=== PATIENT | female | born 1935 | race African-American/Black ===

== ENCOUNTER 2018-01-10 10:52 | Outpatient (CLI) | payer OTHER ==
--- NOTE | 2018-01-10 13:20 | CT Report ---
CT LUMBAR SPINE WITHOUT CONTRAST: 01/10/2018 CLINICAL INDICATION: Back pain. TECHNIQUE: Axial CT images of the lumbar spine were obtained without intravenous contrast. Sagittal and coronal reconstructions were performed. FINDINGS: The lumbar vertebral bodies demonstrate normal height and alignment. No compression fracture is identified. The T12-L1 disk is unremarkable. At L1-2, there is mild broad-based disk bulge, without significant spinal or foraminal narrowing. At L2-3, there is moderate broad-based disk bulge, producing bilateral foraminal narrowing, but no significant spinal stenosis. At L3-L4, there is moderate broad-based disk bulge, producing bilateral foraminal narrowing, but no significant spinal stenosis. At L4-5, there is a large broad-based disk bulge, producing mild spinal stenosis and bilateral foraminal narrowing. At L5-S1, there is broad-based disk bulge and disk osteophyte, producing bilateral foraminal narrowing and mild spinal stenosis. Limited evaluation of the pelvic organs demonstrates calcification in the right ovary, compatible with an ovarian dermoid. The patient is status post hysterectomy. No free fluid or pelvic adenopathy is identified. The visualized bowel loops are unremarkable. IMPRESSION: DEGENERATIVE DISK DISEASE ABOVE. NO EVIDENCE OF FRACTURE. CT DOSE REDUCTION STATEMENT In accordance with CT protocol optimization, one or more of the following dose reduction techniques were utilized for this exam: automated exposure control, adjustment of mA and/or KV based on patient size, or use of iterative reconstructive technique. TD: 01/10/2018 13:19
== END 2018-01-10 10:53 | disposition home or self-care (01) ==
LOC: DI 10:52
PROVIDERS: ATTEND Internal Medicine
DX: M51.36 Other intervertebral disc degeneration, lumbar region (principal)
CPT/HCPCS: 72131

== ENCOUNTER 2018-01-28 15:53 | Outpatient (CLI) | payer MEDICARE, OTHER ==
--- NOTE | 2018-01-28 17:54 | XRAY Preliminary Report ---
Exam: XR HIPS 3-4V BILAT IMPRESSION: 1. No acute bony abnormality. 2. Progression of marked degenerative changes with impingement, grade 4 Kellgren ruma classificat ion, both hips, remaining greater on the right. [facility] SITE ID: [id number]
--- NOTE | 2018-01-28 19:00 | XRAY Report ---
EXAM: PELVIS AND BILATERAL HIPS RADIOGRAPHY EXAM DATE: 01/28/2018 04:19 PM. CLINICAL HISTORY: Pelvic and perineal pain/pain in right hip. COMPARISON: 08/29/2016. TECHNIQUE: 1 view of the pelvis and 1 view of each hip. FINDINGS: Bones: Normal. No fracture or bone lesion. Joints: Increasing caliber of the exuberant confluent osteophytes encircling both femoral heads off t he acetabulum. Increasing subcortical sclerosis acetabular roofs. Stable moderate to marked right and moderate left hip narrowing. Increasing subcortical sclerosis and cyst formation along the mildly flattened right femoral head. Stable minimal subcortical sclerosis normal configured left femoral head. Progression of marked degenerative disk disease L4-L5 and L5-S1. Soft Tissues: Normal. No soft tissue swelling. IMPRESSION: 1. No acute bony abnormality. 2. Progression of marked degenerative changes with impingement, grade 4 Kellgren-Morris classificat ion, both hips, remaining greater on the right. [facility] Referring Provider Line: [phone] SITE ID: [id number]
== END 2018-01-28 15:54 | disposition home or self-care (01) ==
LOC: DI 15:53
PROVIDERS: ATTEND Internal Medicine
DX: M16.0 Bilateral primary osteoarthritis of hip (principal)
CPT/HCPCS: 73522

== ENCOUNTER 2019-02-06 15:37 | Outpatient (CLI) | payer MEDICARE ==
--- NOTE | 2019-02-07 08:49 | XRAY Report ---
Reason: INFLAMMATION OF JOINT OF BOTH HANDS Procedure Date: 02/06/2019 Accession Number: [id number] / [id number] Procedure: XR - Hand 3 View BILAT CPT Code: FULL RESULT: EXAMS: 1. Right Hand Radiography 2. Left Hand Radiography EXAM DATE: 02/06/2019 04:07 PM. CLINICAL HISTORY: Inflammation of joint of both hands. COMPARISON: None. TECHNIQUE: 3 views each hand. FINDINGS: Right: Bones: Normal bone density. No acute fracture or bone lesion. Joints: Degenerative joint space narrowing and mild osteophyte noted of the DIP joints of the digits first and second MCP joint, base of thumb and STT joint. Soft Tissues: No significant soft tissue swelling appreciated. Left: Bones: Normal bone density. No acute fracture or bone lesion. Joints: Milder joint space narrowing and osteophytosis of the DIP joints. Degenerative osteoarthritis at the base of thumb and also the STT joint. Soft Tissues: No significant soft tissue swelling. IMPRESSION: Symmetric pattern of bilateral osteoarthritis slightly greater on the right than the left. No acute fracture. [facility]
--- NOTE | 2019-02-07 11:01 | XRAY Report ---
Reason: INFLAMMATION OF JOINT OF BOTH HANDS Procedure Date: 02/06/2019 Accession Number: [id number] / [id number] Procedure: XR - Wrist 4 View BILAT CPT Code: FULL RESULT: EXAMS: 1. Right Wrist Radiography 2. Left Wrist Radiography EXAM DATE: 02/06/2019 04:07 PM. CLINICAL HISTORY: Inflammation of joint of both hands. COMPARISON: None. TECHNIQUE: 3 views each wrist. FINDINGS: Right: Bones: Normal bone density. No fractures or bone lesions. Joints: Degenerative joint space narrowing and subchondral sclerosis at the base of thumb as well as the second carpometacarpal joint. Mild degenerative arthrosis of the STT joint and the distal radioulnar joint. Soft Tissues: Normal. No soft tissue swelling. Left: Bones: Normal bone density. No fractures or bone lesions. Joints: Milder degenerative changes at the base of thumb and second carpometacarpal joint. Milder joint space narrowing of the STT joint. Soft Tissues: Normal. No soft tissue swelling. IMPRESSION: Symmetric pattern of osteoarthritis as described, right greater than left. [facility]
== END 2019-02-06 15:38 | disposition home or self-care (01) ==
LOC: DI 15:37
PROVIDERS: ATTEND Internal Medicine
DX: M19.042 Primary osteoarthritis, left hand (principal); M19.041 Primary osteoarthritis, right hand; M19.031 Primary osteoarthritis, right wrist

== ENCOUNTER 2019-02-23 07:07 | Day surgery (SDC) | payer MEDICARE ==
[~2019-02-23 07:07] MED LIST: CYCLOPENTOLATE 1% OPHTH DROPS 2 ML ONE; KETOROLAC 0.45% OPHTH DROPS ONE; PHENYLEPHRINE 2.5% OPHTH 2 ML DROPS ONE; PROPARACAINE 0.5% OPHTH DROPS 15 ML ONE
[2019-02-23] MEDS ORDERED: BRIMONIDINE 0.2% OPHTH DROPS 5 ML ONE (07:15)
[2019-02-23] MEDS ORDERED: VANCOMYCIN OPHTHALMI 8MG/0.8ML 8 MG/0.8 ML SYRINGE IO ONE ×3 (07:15→09:29)
[2019-02-23] MEDS ORDERED: TRIAMCIN/MOXIFLOX OPHTHALMIC 0.6 ML VIAL IO ONE ×3 (07:15→09:29)
[2019-02-23] MEDS ORDERED: BSS/LIDOCAINE/EPINEPHRINE 1 ML SYRINGE ONE (07:15)
[2019-02-23] MEDS ORDERED: TIMOLOL 0.5% OPHTH DROPS ONE (07:15)
[2019-02-23] MEDS ORDERED: PROPARACAINE 0.5% OPHTH DROPS 15 ML LEFTEYE ONE ×3 (07:45→09:29)
[2019-02-23] MEDS ORDERED: KETOROLAC 0.45% OPHTH DROPS LEFTEYE ONE (07:45)
[2019-02-23] MEDS ORDERED: PHENYLEPHRINE 2.5% OPHTH 2 ML DROPS LEFTEYE ONE (07:45)
[2019-02-23] MEDS ORDERED: CYCLOPENTOLATE 1% OPHTH DROPS 2 ML LEFTEYE ONE (07:45)
[2019-02-23] MEDS ORDERED: LACTATED RINGERS 500 ML IV ONE (07:59)
--- NOTE | 2019-02-23 08:10 | ANESTHESIA ---
Pre-Anesthesia VS, & Labs - Diagnosis left eye nuclear sclerotic cataract - Procedure left eye cataract extraction with IOL implant Vital Signs: Temp Pulse Resp BP Pulse Ox 37.1 C 75 18 95 02/23/19 07:36 02/23/19 07:36 02/23/19 07:36 02/23/19 07:36 Height 5 ft 8 in Weight (kg) 67 kg - NPO >8 hours - Is Patient ?: No Home Medications and Allergies Home Medications: Ambulatory Orders Aspirin EC [Ecotrin] 325 mg PO DAILY 02/22/19 Metoprolol Succinate [Toprol Xl] 25 mg PO DAILY 02/22/19 Aspirin EC [Ecotrin] 325 mg PO DAILY 02/22/19 Metoprolol Succinate [Toprol Xl] 25 mg PO DAILY 02/22/19 Allergies/Adverse Reactions: Allergies Allergy/AdvReac Type Severity Reaction Status Date / Time No Known Drug Allergies Allergy Verified 02/22/19 14:53 Anes History & Medical History - Anesthetic History Anesthesia Complications: reports: No previous complications - Medical History Cardiovascular: reports: Hypertension Pulmonary: reports: None Gastrointestinal: reports: None Urinary: reports: None Neuro: reports: None Musculoskeletal: reports: Osteoarthritis Endocrine/Autoimmune: reports: None Blood Disorders: reports: None Skin: reports: None Smoking Status: Former smoker (quit 8 years ago) Psychosocial: reports: No issues indicated - Surgical History Gynecologic: Dilation and currettage, Hysterectomy Exam General: Alert, Oriented x3, Cooperative, No acute distress Dental: WNL Mouth Openin Fingerbreadth Neck Mobility: Normal Mallampati classification: II Thyromental Distance: less than 4 cm (2 FB) Respiratory: Lungs clear, Normal breath sounds, No respiratory distress, No accessory muscle use Cardiovascular: Regular rate, Normal S1, Normal S2, No murmurs Mental/Cognitive Status: Alert/Oriented X3, Normal for patient Plan Anesthesia Type: MAC Consent for Procedure(s) Verified and Reviewed: Yes Code Status: Attempt Resuscitation ASA classification: 2-Mild systemic disease Is this case an emergency?: No
[2019-02-23] MEDS ORDERED: BRIMONIDINE 0.2% OPHTH DROPS 5 ML OPTH ONE ×2 (08:53→09:29)
[2019-02-23] MEDS ORDERED: EPINEPHrine 1 MG/ML AMP IVP ONE ×2 (08:53→09:28)
[2019-02-23] MEDS ORDERED: CHONDR SULF/HYALURONATE SYRINGE IO ONE ×2 (08:54→09:28)
[2019-02-23] MEDS ORDERED: BSS/LIDOCAINE/EPINEPHRINE 1 ML SYRINGE IO ONE ×2 (08:54→09:29)
[2019-02-23] MEDS ORDERED: MIDAZOLAM 2 MG/2 ML VIAL IVP ONE (09:11)
[2019-02-23] MEDS ORDERED: TIMOLOL 0.5% OPHTH DROPS OPTH ONE (09:28)
[2019-02-23 09:48] VITALS: BP 169/77
--- NOTE | 2019-02-23 10:07 | OPERATIVE REPORT ---
DATE OF SERVICE: 02/23/2019 Physician: Tavares Morel MD PREOPERATIVE DIAGNOSIS: Visually significant cataract, left eye. This was her first cataract surger y. POSTOPERATIVE DIAGNOSIS: Visually significant cataract, left eye. This was her first cataract surge ry. NAME OF PROCEDURE: Phacoemulsification with posterior chamber intraocular lens implant, left eye. SURGEON: Tavares Morel MD ANESTHESIA: Monitored anesthesia care. COMPLICATIONS: None. OPERATIVE INDICATIONS: This is an 83-year-old woman with progressive vision loss in the left eye due to 4+ nuclear sclerotic cataract. Best corrected visual acuity was 20/50 with glare to 20/125 in th e left eye. Indications for surgery were overall decrease in vision, difficulty seeing words, closed captions, game scores on TV, difficulty seeing street signs, difficulty driving in low light or at n ight, difficulty driving at night because of headlights from other vehicles, and difficulty with glar e or bright lights in any situation. She was consented at length concerning risks and benefits of ca taract surgery, after which she expressed a desire to proceed with surgery. OPERATIVE PROCEDURE: The patient was taken to OR #3 and placed under monitored anesthesia care. Checo gical timeout was conducted confirming correct patient, correct procedure, and correct surgical site. She was given topical anesthesia, and then prepped and draped in the usual sterile fashion. The ey e was entered at the 6 and 3 o'clock positions. Intracameral Shugarcaine was injected into the anter ior chamber, followed by Viscoat. A continuous-tear curvilinear capsulorrhexis was performed. Nucle us was hydrodissected and phacoemulsified. The cortex was evacuated using automated infusion and asp iration. Provisc was injected in the capsular bag, and a 22.5 diopter intraocular lens inserted in t he bag. Approximately 0.8 mL of a mixture of triamcinolone, moxifloxacin and vancomycin was injected subconjunctivally in the superior quadrant for infection and inflammation prophylaxis. I and A, was used to evacuate the viscoelastic materials. The eye was inflated to physiologic pressure using bal anced salt solution and found to be watertight. The patient was taken from the operating room in goo d condition and given postop instructions. TD: 02/23/2019 09:50
== END 2019-02-23 07:08 | disposition home or self-care (01) ==
LOC: SDS 07:07
PROVIDERS: ATTEND Ophthalmology
PROC: 08RK3JZ Replacement of Left Lens with Synthetic Substitute, Percutaneous Approach (ICD-10-PCS; principal; 2019-02-23 09:00)
DX: H25.12 Age-related nuclear cataract, left eye (principal); I10 Essential (primary) hypertension; G58.9 Mononeuropathy, unspecified; Z87.891 Personal history of nicotine dependence; Z79.82 Long term (current) use of aspirin
CPT/HCPCS: 66984; A9270; J3490; V2632

== ENCOUNTER 2019-05-04 07:56 | Day surgery (SDC) | payer MEDICARE ==
[2019-05-04] MEDS ORDERED: LACTATED RINGERS 500 ML IV ONE (08:48)
[2019-05-04] MEDS ORDERED: CYCLOPENTOLATE 1% OPHTH DROPS 2 ML RIGHTEYE ONE (08:49)
[2019-05-04] MEDS ORDERED: PHENYLEPHRINE 2.5% OPHTH 2 ML DROPS RIGHTEYE ONE (08:49)
[2019-05-04] MEDS ORDERED: PROPARACAINE 0.5% OPHTH DROPS 15 ML RIGHTEYE ONE ×2 (08:49→09:54)
[2019-05-04] MEDS ORDERED: KETOROLAC 0.45% OPHTH DROPS RIGHTEYE ONE (08:49)
--- NOTE | 2019-05-04 09:03 | ANESTHESIA ---
Pre-Anesthesia VS, & Labs - Diagnosis R nuclear sclerotic cataract - Procedure R extraction cataract w/IOL Vital Signs: Temp Pulse Resp BP Pulse Ox 36.4 C L 74 16 182/66 H 96 05/04/19 08:52 05/04/19 08:52 05/04/19 08:52 05/04/19 08:52 05/04/19 08:52 Height 5 ft 9 in Weight (kg) 69.2 kg - NPO >8 hours - Is Patient ?: No Home Medications and Allergies Aspirin EC [Ecotrin] 325 mg PO DAILY 02/22/19 Metoprolol Succinate [Toprol Xl] 25 mg PO DAILY 02/22/19 Allergies/Adverse Reactions: Allergies Allergy/AdvReac Type Severity Reaction Status Date / Time No Known Drug Allergies Allergy Verified 02/22/19 14:53 Anes History & Medical History - Anesthetic History Anesthesia Complications: reports: No previous complications Family history of Anesthesia Complications: Denies Family history of Malignant Hyperthermia: Denies - Medical History Cardiovascular: reports: Hypertension Pulmonary: reports: None Gastrointestinal: reports: None Urinary: reports: None Neuro: reports: None Musculoskeletal: reports: Osteoarthritis Endocrine/Autoimmune: reports: None Blood Disorders: reports: None Skin: reports: None Smoking Status: Former smoker (quit 8 years ago) - Surgical History Gynecologic: Hysterectomy Exam General: Alert, Oriented x3, Cooperative Dental: WNL Mouth Openin Fingerbreadth Neck Mobility: Normal Mallampati classification: II Thyromental Distance: 4-6 cm Respiratory: Lungs clear Cardiovascular: Regular rate Neurological: Normal speech Mental/Cognitive Status: Alert/Oriented X3, Normal for patient Cognitive Status: Within normal limits Plan Anesthesia Type: MAC Consent for Procedure(s) Verified and Reviewed: Yes Code Status: Attempt Resuscitation ASA classification: 2-Mild systemic disease Is this case an emergency?: No
[2019-05-04] MEDS ORDERED: BRIMONIDINE 0.2% OPHTH DROPS 5 ML OPTH ONE (09:52)
[2019-05-04] MEDS ORDERED: EPINEPHrine 1 MG/ML AMP IVP ONE (09:53)
[2019-05-04] MEDS ORDERED: TIMOLOL 0.5% OPHTH DROPS OPTH ONE (09:53)
[2019-05-04] MEDS ORDERED: BSS/LIDOCAINE/EPINEPHRINE 1 ML SYRINGE IO ONE (09:53)
[2019-05-04] MEDS ORDERED: CHONDR SULF/HYALURONATE SYRINGE IO ONE (09:53)
[2019-05-04] MEDS ORDERED: TRIAMCIN/MOXIFLOX OPHTHALMIC 0.6 ML VIAL IO ONE ×2 (09:54→10:57)
[2019-05-04] MEDS ORDERED: VANCOMYCIN OPHTHALMI 8MG/0.8ML 8 MG/0.8 ML SYRINGE IO ONE ×2 (09:54→10:59)
[2019-05-04] MEDS ORDERED: MIDAZOLAM 2 MG/2 ML VIAL IVP ONE (10:07)
[2019-05-04] MEDS ORDERED: BRIMONIDINE 0.2% OPHTH DROPS 5 ML ONE (10:58)
[2019-05-04] MEDS ORDERED: EPINEPHrine 1 MG/ML AMP ONE (10:58)
[2019-05-04] MEDS ORDERED: BSS/LIDOCAINE/EPINEPHRINE 1 ML SYRINGE ONE (10:59)
[2019-05-04] MEDS ORDERED: TIMOLOL 0.5% OPHTH DROPS ONE (10:59)
[2019-05-04 11:01] VITALS: BP 166/79
--- NOTE | 2019-05-04 11:03 | OPERATIVE REPORT ---
DATE OF SERVICE: 05/04/2019 Physician: Tavares Morel MD PREOPERATIVE DIAGNOSIS: Visually significant cataract, right eye. Cataract surgery was performed on the left eye on 02/23/2019. POSTOPERATIVE DIAGNOSIS: Visually significant cataract, right eye. Cataract surgery was performed o n the left eye on 02/23/2019. PROCEDURE: Phacoemulsification with posterior chamber intraocular lens implant, right eye. SURGEON: Tavares Morel MD ANESTHESIA: Monitored anesthesia care. COMPLICATIONS: None. OPERATIVE INDICATIONS: This is an 83-year-old woman with progressive vision loss in the right eye du e to 4+ nuclear sclerotic cataract. Best corrected visual acuity was 20/50 with glare to 20/100 in t he right eye. Indications for surgery are overall decrease in vision, difficulty reading, difficulty seeing words, closed caption and game scores on TV, difficulty seeing street signs, difficulty drivi ng in low light or at night and difficulty with glare or bright lights in any situation. She was con sented at length concerning risks and benefits of cataract surgery, after which she expressed a bonita e to proceed with surgery. OPERATIVE PROCEDURE: Patient was taken into OR #3 and placed under monitored anesthesia care. A corine gical timeout was conducted confirming the correct patient, correct procedure, and correct surgical s ite. She was given topical anesthesia, and prepped and draped in the usual sterile fashion. The eye was entered at the 12 and 9 o'clock positions. Intracameral Shugarcaine was injected into the anter ior chamber, followed by Viscoat. A continuous-tear curvilinear capsulorrhexis was performed. The n ucleus was hydrodissected and phacoemulsified. The cortex was evacuated using automated infusion and aspiration. Provisc was injected into the capsular bag, and a 22.5 diopter intraocular lens inserte d into the bag. Approximately 0.8 mL of a mixture of triamcinolone, moxifloxacin and vancomycin was injected subconjunctivally in the superior quadrant for infection and inflammation prophylaxis. I an d A was used to evacuate the viscoelastic materials. The eye was inflated to physiologic pressure us ing balanced salt solution and found to be watertight. The patient was taken from the operating room in good condition and given postoperative instructions. TD: 05/04/2019 10:17
== END 2019-05-04 07:57 | disposition home or self-care (01) ==
LOC: SDS 07:56
PROVIDERS: ATTEND Ophthalmology
PROC: 08RJ3JZ Replacement of Right Lens with Synthetic Substitute, Percutaneous Approach (ICD-10-PCS; principal; 2019-05-04 10:00)
DX: H25.11 Age-related nuclear cataract, right eye (principal); I10 Essential (primary) hypertension; Z87.891 Personal history of nicotine dependence; Z79.82 Long term (current) use of aspirin; Z79.899 Other long term (current) drug therapy; Z98.42 Cataract extraction status, left eye
CPT/HCPCS: 66984; A9270; J3490; V2632

== ENCOUNTER 2021-07-15 18:01 | Observation (INO) | payer MEDICARE, MEDICAID ==
[2021-07-15 18:36] LABS: BASOPHILS % (AUTO) 0.3 %; EOSINOPHILS % (AUTO) 0.3 %; HCT - HEMATOCRIT 30.3 % (37.0-47.0); HGB - HEMOGLOBIN 9.5 g/dL (12.0-16.0); LYMPHOCYTES # (AUTO) 2.8 10^3/uL (1.5-3.5); LYMPHOCYTES % (AUTO) 24.5 %; MEAN CORPUSCULAR HEMOGLOBIN 28.6 pg (27.0-31.0); MEAN CORPUSCULAR HGB CONC 31.4 g/dL (32.0-36.0); MEAN CORPUSCULAR VOLUME 91.3 fL (81.0-99.0); MEAN PLATELET VOLUME 10.6 fL (7.9-10.8); MONOCYTES # (AUTO) 0.9 10^3/uL (0.0-1.0); MONOCYTES % (AUTO) 7.7 %; NEUTROPHILS # (AUTO) 7.7 10^3/uL (1.5-6.6); NEUTROPHILS % (AUTO) 66.9 %; PLT - PLATELET COUNT 232 10^3/uL (130-450); RED BLOOD COUNT 3.32 10^6/uL (4.20-5.40); RED CELL DISTRIBUTION WIDTH 14.6 % (12.0-15.0); WHITE BLOOD COUNT 11.5 x10^3/uL (4.8-10.8)
[2021-07-15 18:55] LABS: ALBUMIN 3.8 g/dL (3.2-5.5); ALBUMIN/GLOBULIN RATIO 1.3 (1.0-2.2); CALCIUM 9.2 mg/dL (8.5-10.3); POTASSIUM 4.4 mmol/L (3.5-5.0); TOTAL PROTEIN 6.8 g/dL (6.7-8.2)
--- NOTE | 2021-07-15 19:04 | ED Physician Documentation ---
PD HPI CHEST PAIN - Stated complaint Stated Complaint: SOA,CHEST PX - Chief complaint Chief Complaint: Cardiac - History obtained from History obtained from: Patient - History of Present Illness Timing - onset: How many days ago (2) Timing - onset during: Light activity Timing - duration: Days (2The patient has noticed a couple of days of dyspnea on exertion and general fatigue along with an epigastric to substernal pain. She states it feels burning. She tried some MOM yesterday without improvement. Noted dark stool today.) Timing - details: Gradual onset, Still present Quality: Aching Location: Substernal, Epigastric Radiation: No: Neck, Back Improved by: Rest Worsened by: Exertion, Eating. No: Palpation Associated symptoms: Nausea, Feeling faint / dizzy (today), General Weakness. No: Shortness of air, Vomiting Similar symptoms before: Has not had sx before Recently seen: Clinic (chemo at [facility] 2 weeks ago. Seen in clinic last week [facility]. Had labs done yesterday and CT chest/abd this morning in [facility]. Had increased abd pain after PO contrast for that.) Review of Systems Constitutional: reports: Fatigue, Weight Loss. denies: Fever, Chills Nose: denies: Rhinorrhea / runny nose, Congestion Throat: denies: Sore throat Cardiac: reports: Chest pain / pressure. denies: Palpitations, Pedal edema Respiratory: reports: Dyspnea. denies: Cough GI: reports: Abdominal Pain (epigastric), Nausea (with decreased oral intake for several days). denies: Vomiting, Diarrhea : denies: Dysuria Skin: denies: Rash Musculoskeletal: denies: Extremity swelling Neurologic: reports: Generalized weakness, Near syncope. denies: Focal weakness, Numbness, Syncope Psychiatric: denies: Depressed Endocrine: reports: Weight loss. denies: Weight gain, Easy bruising / bleeding Immunocompromised: reports: Immunocompromised PD PAST MEDICAL HISTORY - Past Medical History Past Medical History: Yes Cardiovascular: Hypertension Respiratory: None Neuro: None Endocrine/Autoimmune: None GI: None, Other (colon cancer with lung mets, getting chemo currently. ) : None HEENT: Chronic vision loss Psych: None Musculoskeletal: Osteoarthritis Derm: None - Past Surgical History Past Surgical History: Yes /[employer]: Hysterectomy - Present Medications Home Medications: Ambulatory Orders Medication Instructions Recorded Confirmed Aspirin EC [Ecotrin] 325 mg PO DAILY 02/22/19 07/15/21 Metoprolol Succinate [Toprol Xl] 25 mg PO DAILY 02/22/19 07/15/21 Cyanocobalamin (Vitamin B-12) 5,000 mcg PO DAILY 07/15/21 07/15/21 [Vitamin B12] Multivitamin [Theragran] 1 each PO DAILY 07/15/21 07/15/21 - Allergies Allergies/Adverse Reactions: Allergies Allergy/AdvReac Type Severity Reaction Status Date / Time No Known Drug Allergies Allergy Verified 07/15/21 18:04 - Living Situation Living Situation: reports: With family Living Arrangement: reports: At home - Social History Does the pt smoke?: No Smoking Status: Never smoker Does the pt drink ETOH?: No Does the pt have substance abuse?: No - POLST POLST Status: Full Code PD ED PE NORMAL - Vitals Vital signs reviewed: Yes (BP mildly low at 96/52, improved with IV fluids. ) - General General: Alert and oriented X 3, No acute distress, Well developed/nourished - HEENT HEENT: Pharynx benign. No: Moist mucous membranes - Neck Neck: Supple, no meningeal sign, No adenopathy - Cardiac Cardiac: RRR, No murmur - Respiratory Respiratory: Clear bilaterally, Other (port noted left chest wall. ) - Abdomen Abdomen: Normal bowel sounds, Soft, Non distended, No organomegaly, Other (tender epigastric without percussion nor rebound. ) - Rectal Rectal: Other (soft stool in vault, appears dark/melanotic. Sent to lab. ) - Derm Derm: Normal color, Warm and dry - Extremities Extremities: No tenderness to palpate, Normal ROM s pain, No edema, No calf tenderness / cord - Neuro Neuro: Alert and oriented X 3, No motor deficit, Normal speech Eye Opening: Spontaneous Motor: Obeys Commands Verbal: Oriented GCS Score: 15 Results - Vitals Vitals: Vital Signs - 24 hr 07/15/21 07/15/21 07/15/21 18:04 20:11 20:16 Temperature 36.1 C L Heart Rate 88 75 Heart Rate [ 87 Sitting] Heart Rate [ 118 H Standing] Heart Rate [ 85 Supine] Respiratory 18 20 Rate Blood Pressure 96/52 L 150/50 H Blood Pressure 133/105 H [Sitting] Blood Pressure 143/57 H [Standing] Blood Pressure 139/113 H [Supine] O2 Saturation 100 100 Oxygen O2 Source Room air - Labs Labs: Microbiology 07/15/21 20:30 Occult Blood - Final Stool Laboratory Tests 07/15/21 07/15/21 07/15/21 18:32 18:32 18:32 WBC 11.5 H RBC 3.32 L Hgb 9.5 L Hct 30.3 L MCV 91.3 MCH 28.6 MCHC 31.4 L RDW 14.6 Plt Count 232 MPV 10.6 Neut # (Auto) 7.7 H Lymph # (Auto) 2.8 [place] # (Auto) 0.9 Eos # (Auto) 0.0 Baso # (Auto) 0.0 Absolute Nucleated RBC 0.00 Nucleated RBC % 0.0 Sodium 133 L Potassium 4.4 Chloride 98 L Carbon Dioxide 22 Anion Gap 13.0 BUN 35 H Creatinine 1.0 Estimated GFR (MDRD) 64 L Glucose 122 H Calcium 9.2 Total Bilirubin 1.0 AST 19 ALT 13 Alkaline Phosphatase 62 Troponin I High Sens 4.8 Total Protein 6.8 Albumin 3.8 Globulin 3.0 Albumin/Globulin Ratio 1.3 Lipase 28 Nasal Adenovirus (PCR) Nasal B. parapertussis DNA (PCR) Nasal Coronavir 229E PCR Nasal Coronavir HKU1 PCR Nasal Coronavir NL63 PCR Nasal Coronavir OC43 PCR Nasal Enterovir/Rhinovir PCR Nasal Influenza B PCR Nasal Influenza A PCR Nasal Parainfluen 1 PCR Nasal Parainfluen 2 PCR Nasal Parainfluen 3 PCR Nasal Parainfluen 4 PCR Nasal RSV (PCR) Nasal B.pertussis DNA PCR Nasal C.pneumoniae (PCR) Phil Human Metapneumo PCR Nasal M.pneumoniae (PCR) Nasal SARS-CoV-2 (PCR) 07/15/21 21:09 WBC RBC Hgb Hct MCV MCH MCHC RDW Plt Count MPV Neut # (Auto) Lymph # (Auto) [place] # (Auto) Eos # (Auto) Baso # (Auto) Absolute Nucleated RBC Nucleated RBC % Sodium Potassium Chloride Carbon Dioxide Anion Gap BUN Creatinine Estimated GFR (MDRD) Glucose Calcium Total Bilirubin AST ALT Alkaline Phosphatase Troponin I High Sens Total Protein Albumin Globulin Albumin/Globulin Ratio Lipase Nasal Adenovirus (PCR) NOT DETECTED Nasal B. parapertussis DNA (PCR) NOT DETECTED Nasal Coronavir 229E PCR NOT DETECTED Nasal Coronavir HKU1 PCR NOT DETECTED Nasal Coronavir NL63 PCR NOT DETECTED Nasal Coronavir OC43 PCR NOT DETECTED Nasal Enterovir/Rhinovir PCR NOT DETECTED Nasal Influenza B PCR NOT DETECTED Nasal Influenza A PCR NOT DETECTED Nasal Parainfluen 1 PCR NOT DETECTED Nasal Parainfluen 2 PCR NOT DETECTED Nasal Parainfluen 3 PCR NOT DETECTED Nasal Parainfluen 4 PCR NOT DETECTED Nasal RSV (PCR) NOT DETECTED Nasal B.pertussis DNA PCR NOT DETECTED Nasal C.pneumoniae (PCR) NOT DETECTED Phil Human Metapneumo PCR NOT DETECTED Nasal M.pneumoniae (PCR) NOT DETECTED Nasal SARS-CoV-2 (PCR) NOT DETECTED PD MEDICAL DECISION MAKING - ED course Complexity details: reviewed results (We did obtain CT report and blood tests from yesterday and the CT report from this morning. Her hemoglobin did show an interval change from 11.6 down to 9.5.), re-evaluated patient (She is feeling a little bit improved with some IV fluids. However still feels general weakness. Her upper abdominal discomfort is improved with Mylanta.), considered differential (Concern for gastritis versus ulcer with report of some dark stool and appears guaiac negative. Will send it to the lab. Checking blood count and other labs. She had CT abdomen and chest chest this morning so we will obtain those results.), d/w patient Departure - Departure Disposition: ED Place in Observation Clinical Impression: Upper GI bleeding, Generalized weakness, Decreased hemoglobin Colon cancer Qualifiers: Colon location: unspecified part of colon Qualified Code(s): C18.9 - Malignant neoplasm of colon, unspecified Condition: Stable Record reviewed to determine appropriate education?: Yes Discharge Date/Time: 07/15/21 23:26
--- NOTE | 2021-07-15 19:06 | XRAY Report ---
PROCEDURE: Chest 1 View X-Ray INDICATIONS: Chest Pain TECHNIQUE: One view of the chest was acquired. COMPARISON: None. FINDINGS: Surgical changes and devices: Left-sided port with the catheter tip at the lower third of the SVC.. Lungs and pleura: No pleural effusions or pneumothorax. Lungs appear clear. Mediastinum: Mediastinal contours appear normal. Heart size is normal. Bones and chest wall: No suspicious bony lesions. Overlying soft tissues appear unremarkable. IMPRESSION: No acute cardiopulmonary abnormality. Reviewed by: Dangelo Lopez MD on 07/15/2021 7:05 PM PDT Approved by: Dangelo Lopez MD on 07/15/2021 7:05 PM PDT Station ID: [id number]
[2021-07-15] MEDS ORDERED: SODIUM CHLORIDE 0.9% 1,000 ML IV STA (19:34)
[2021-07-15] MEDS ORDERED: MAG HYDROX/AL HYDROX/SIMETH 30 ML UDC PO STA (19:35)
[2021-07-15] MEDS ORDERED: ONDANSETRON 4 MG/2 ML VIAL IVP STA (19:35)
[2021-07-15] MEDS ORDERED: FAMOTIDINE 20 MG/2 ML VIAL IVP STA (19:35)
[2021-07-15] MEDS ORDERED: PANTOPRAZOLE 40 MG VIAL IVP STA (21:04)
[2021-07-15] MEDS ORDERED: SODIUM CHLORIDE FLUSH 0.9% 10 ML SYRINGE IVP PRN (22:00)
[2021-07-15] MEDS ORDERED: ONDANSETRON ODT 4 MG TABLET TL PRN (22:00)
[2021-07-15] MEDS ORDERED: PROCHLORPERAZINE 10 MG/2 ML VIAL IVP PRN (22:00)
[2021-07-15] MEDS ORDERED: ONDANSETRON 4 MG/2 ML VIAL IVP PRN (22:00)
[2021-07-15 22:23] LABS: HCT - HEMATOCRIT 26.4 % (37.0-47.0); MEAN CORPUSCULAR HEMOGLOBIN 28.7 pg (27.0-31.0); MEAN CORPUSCULAR HGB CONC 30.3 g/dL (32.0-36.0); MEAN CORPUSCULAR VOLUME 94.6 fL (81.0-99.0); MEAN PLATELET VOLUME 10.6 fL (7.9-10.8); RED BLOOD COUNT 2.79 10^6/uL (4.20-5.40); RED CELL DISTRIBUTION WIDTH 14.8 % (12.0-15.0); WHITE BLOOD COUNT 9.2 x10^3/uL (4.8-10.8)
[2021-07-15 23:17] LABS: B. PARAPERTUSSIS- RESP PCR PAN NOT DETECTED; B. PERTUSSIS- RESP PCR PANEL NOT DETECTED; C. PNEUMONIAE- RESP PCR PANEL NOT DETECTED; CORONAVIRUS 229E-RESP PCR NOT DETECTED; CORONAVIRUS HKU1-RESP PCR NOT DETECTED; CORONAVIRUS NL63-RESP PCR NOT DETECTED; CORONAVIRUS OC43-RESP PCR NOT DETECTED; HUMAN METAPNEUMOVIRUS NOT DETECTED; INFLUENZA A- RESP PCR PANEL NOT DETECTED; INFLUENZA B - RESP PCR PANEL NOT DETECTED; M. PNEUMONIAE- RESP PCR PANEL NOT DETECTED; PARAINFLUENZA VIRUS 1 NOT DETECTED; PARAINFLUENZA VIRUS 2 NOT DETECTED; PARAINFLUENZA VIRUS 3 NOT DETECTED; PARAINFLUENZA VIRUS 4 NOT DETECTED; RHINOVIRUS/ENTEROVIRUS NOT DETECTED; RSV- RESP PCR PANEL NOT DETECTED; SARS-CoV-2 -RESP PCR PANEL NOT DETECTED
--- NOTE | 2021-07-15 23:38 | HISTORY & PHYSICAL EXAMINATION ---
Chief Complaint - Chief Complaint Chief Complaint: short of breath and epigastric burning History of Present Illness - Admitted From Admitted From:: home via POV - History Obtained From Records Reviewed: [facility] History obtained from: patient and Dr. Luo Exam Limitations: none - History of Present Illness HPI Comment/Other: This is an 85-year-old female who is followed by Rachelle Sandhu at [facility] and was diagnosed with colon cancer in June 2020 but also has a history of nonsmall cell lung cancer. She is undergoing chemotherapy but can't tell me the name nor can she remember her last dosing. Her Oncologist is Gerardo Schilling MD. She has no previous history of ulcer disease, and we do not have records to indicate what her staging is. She is on aspirin daily. She also takes nonsteroidals for arthritis. But she has not had any for the last 3 to 4 days. She presented to the emergency room via private vehicle with chest pain that started last night. Accompanying the chest pain is just dyspnea on exertion. Pain is in the epigastric reason, nonstop, a burning sensation. No radiation. Driving here in the car did not make the pain worse or better. Eating does not make it worse or better. Last bowel movement was today. She does not recall if it was black or brown. She knows that she did not have any blood. She denies any abdominal pain. Diarrhea. She states that in spite of the cancer and chemotherapy she has been doing well. She still has a relatively decent appetite. Has lost weight but still likes food. Denies cough, wheezing. Had no fatigue or dyspnea on exertion until it was sudden onset yesterday. Denies headache, syncope. Temperature is 36.1. Heart rate 88. Blood pressure 96/52. She was on 100% on room air. Dr. Luo verbally reports that her exam was negative to him from a cardiac perspective. She was not a congestive heart failure. Was not tachyp neic or in respiratory distress. He did a rectal exam of black stool and she was heme positive. She had blood work done yesterday as part of her follow-up for chemo and treatment and hemoglobin was 11.4. Today hemoglobin is 9.5. Troponin was 4.8. Sodium 133. BUN [address] of abdomen and pelvis was done today prior to her visit to the emergency room. She has marked diffuse centrilobular emphysema, similar to prior exams. Multiple lung nodules are similar to her previous exam. She has a new nodule within worsening groundglass density of the right upper lobe. No pleural effusion. No bony abnormalities suggestive of metastatic bone disease. Colon was unremarkable. She has slight interval increase in the enhancing nodule in the left lower quadrant of her abdomen when compared to March 10, 2021. And unchanged calcified right adnexal lesion. She is now placed in observation for acute blood loss anemia associated with black heme positive stool. 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 She does not remember if they had any high blood pressure diabetes cancer heart attack. She is 1 of 6 siblings and she says as far she knows everyone is healthy. No one is . Her one son is healthy. Living arrangement: At home Living Situation: With family Social History Notes: Born in [facility] and then her mom took the kids to [place] at a young age for her. She was in [place], and unfortunately her in 2011 of kidney failure. She was living in [place] to be close to her kids. She has 1 son and a ukeqxche-iz-sib and great grandkids. The son decided to move to [facility] and she did not want to be by herself so she sold her condo and moved in with her son and daughte r-in-law [place] She smoked 1 pack/day starting in her 20s and quit in 2009. She has no history of alcohol abuse or recreational substance abuse. 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 - Substance History Use: Uses substance without health or social issues: NONE - POLST Patient has POLST: Yes POLST Status: Full Code Meds/Allgy - Home Medications Home Medications: Ambulatory Orders Medication Instructions Recorded Confirmed Aspirin EC [Ecotrin] 325 mg PO DAILY 02/22/19 07/15/21 Metoprolol Succinate [Toprol Xl] 25 mg PO DAILY 02/22/19 07/15/21 Cyanocobalamin (Vitamin B-12) 5,000 mcg PO DAILY 07/15/21 07/15/21 [Vitamin B12] Multivitamin [Theragran] 1 each PO DAILY 07/15/21 07/15/21 - Allergies Allergies/Adverse Reactions: Allergies Allergy/AdvReac Type Severity Reaction Status Date / Time No Known Drug Allergies Allergy Verified 07/15/21 18:04 Review of Systems - Constitutional Constitutional: reports: Other (Fatigue and malaise was abrupt in onset starting yesterday afternoon.). denies: Fever, Chills, Poor appetite, Diaphoresis, Night sweats - Eyes Eyes: denies: Pain, Irritation, Amaurosis - Ears, Nose & Throat Ears, Nose & Throat: denies: Ear pain, Hearing loss, Hearing aids, Tinnitus, Sore throat, Hoarseness - Cardiovascular Cariovascular: reports: Lightheadedness (Starting yesterday), Exertional dyspnea (Starting yesterday). denies: Irregular heart rate, Palpitations, Chest pain, Edema - Respiratory Respiratory: denies: Cough, Sputum production, Wheezing, Snoring, Orthopnea - Gastrointestinal Gastrointestinal: denies: Abdominal pain, Abdominal distention, Constipation, Diarrhea, Black stools, Bloody stools, Nausea, Vomiting - Genitourinary Genitourinary: denies: Dysuria, Frequency, Urgency - Musculoskeletal Musculoskeletal: denies: Muscle pain, Back pain, Muscle aches - Integumentary Integumentary: denies: Rash, Pruritis, Lesions, Dryness - Neurological Neurological: reports: General weakness, Dizziness. denies: Focal weakness, Headache - Psychiatric Psychiatric: denies: Depression, Anxiety, Suicidal - Endocrine Endocrine: denies: Polyuria, Polydypsia, Polyphagia - Hematologic/Lymphatic Hematologic/Lymphatic: denies: Anemia, Bruising, Petechiae Prior Level of Functionality: She states that she is still cooking for her family. Dresses himself, feeds her self. Her son and [id number] take her to her doctor visits. She lives with them. Does not use any durable medical equipment. Exam - Vital Signs Reviewed Vital Signs: Yes Vital Signs: Vital Signs x48h Temp Pulse Pulse Pulse Pulse Resp BP 07/15/21 23:00 36.5 C 85 15 123/65 07/15/21 22:21 85 20 07/15/21 20:16 87 118 H 85 07/15/21 20:11 75 20 150/50 H 07/15/21 18:04 36.1 C L 88 18 96/52 L BP BP BP Pulse Ox 07/15/21 23:00 100 07/15/21 22:21 100 07/15/21 20:16 133/105 H 143/57 H 139/113 H 07/15/21 20:11 100 07/15/21 18:04 100 - Physical Exam General Appearance: positive: No acute distress, Alert, Other (Absolutely delightful elderly black female) Eyes Bilateral: positive: PERRL, EOMI ENT: positive: Pharynx nml Neck: positive: No JVD. negative: Stiff neck Respiratory: positive: No respiratory distress. negative: Wheezes, Rales, Rhonchi Cardiovascular: positive: Regular rate & rhythm, Systolic murmur. negative: Gallop/S4, Friction rub Peripheral Pulses: positive: 1+ Abdomen: positive: No organomegaly, Nml bowel sounds, No distention, Tenderness (Very mild in mid epigastric region.) Rectal: positive: Stool - heme POS (Per ER provider, that was black stool), Black stool Skin: positive: Warm, Dry Extremities: positive: Full ROM, No pedal edema Neurologic/Psychiatric: positive: Oriented x3, CN's nml (2-12), Motor nml Conclusion/Plan - Problem List (1) Epigastric abdominal pain Conclusion/Plan: In an elderly patient who takes daily aspirin therapy, no history of smoking, my suspicion is that of gastritis or ulcer. Accompanying this is the next 2 problems. I suspect low-grade upper GI bleed. Plan: Observation status Serial hemograms to make sure she does not need a transfusion Proton pump inhibitor General surgery consult has been discussed with Dr. Smith for EGD tomorrow (2) Black stool Conclusion/Plan: Hematochezia due to upper GI bleed. Plan is as above with epigastric pain (3) Acute anemia Conclusion/Plan: Due to upper GI bleed. (4) Colon cancer Conclusion/Plan: Unknown pathology, unknown staging. Same for the non-small cell lung cancer. Plan:Call her oncologist office to see if we can get some infomation Qualifiers: Colon location: unspecified part of colon Qualified Code(s): C18.9 - Malignant neoplasm of colon, unspecified - Lab Results Lab results reviewed: Yes Chuckie Bones: 07/15/21 22:21 07/15/21 18:32 - Diagnostic Imaging Results Diagnostic Imaging Results: positive: Final report reviewed Core Measures - Anticipated LOS I expect patient to be DC'd or transferred within 96 hours.: Yes - DVT/VTE - Prophylaxis VTE/DVT Device ordered at admit?: Yes
[2021-07-15] MEDS: SODIUM CHLORIDE 0.9% 1,000 ML IV SCH (23:42)
[2021-07-15] MEDS: SODIUM CHLORIDE FLUSH 0.9% 10 ML SYRINGE IVP SCH (23:42)
[2021-07-16] MEDS ORDERED: PANTOPRAZOLE 40 MG VIAL IVP SCH (07:00)
[2021-07-16 07:10] LABS: HCT - HEMATOCRIT 25.2 % (37.0-47.0); HGB - HEMOGLOBIN 7.9 g/dL (12.0-16.0); MEAN CORPUSCULAR HEMOGLOBIN 28.7 pg (27.0-31.0); MEAN CORPUSCULAR HGB CONC 31.3 g/dL (32.0-36.0); MEAN CORPUSCULAR VOLUME 91.6 fL (81.0-99.0); MEAN PLATELET VOLUME 10.7 fL (7.9-10.8); RED BLOOD COUNT 2.75 10^6/uL (4.20-5.40); WHITE BLOOD COUNT 7.8 x10^3/uL (4.8-10.8)
--- NOTE | 2021-07-16 08:27 | CONSULTATION NOTE ---
Referring Provider Name of Referring Provider:: Ben Consult Date: 07/16/21 Chief Complaint - Chief Complaint Chief Complaint: chest pain, gagging on food x 24 hours History of Present Illness - Admitted From Admitted From:: ED - History Obtained From Records Reviewed: [facility] from [facility] History obtained from: Patient - History of Present Illness HPI Comment/Other: This 85 yo female has been receiving chemotherapy at [facility] in [place] and had a follow uo Chest/abd/pelvis CT yesterday. Last chemo 2 weeks ago at [facility]. Hemoglobin noticed to drop from 11.4 to 8 and stool is Heme positive. She also has lung Cancer, no other details available. Chemo has been for colon cancer. CT chest/abd/pelvis yesterday at [facility] showed normal esophagus and mediastinum, normal liver and GB, enlarged nodule in left pelvis mesentery, multiple bilateral lung nodules. History - Past Medical History Cardiovascular: reports: Hypertension Respiratory: reports: None Neuro: reports: None Endocrine/Autoimmune: reports: None GI: reports: None, Other (colon cancer with lung mets, getting chemo currently. 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 She does not remember if they had any high blood pressure diabetes cancer heart attack. She is 1 of 6 siblings and she says as far she knows everyone is healthy. No one is . Her one son is healthy. Living arrangement: At home Living Situation: With family Social History Notes: Born in [facility] and then her mom took the kids to [place] at a young age for her. She was in [place], and unfortunately her in 2011 of kidney failure. She was living in [place] to be close to her kids. She has 1 son and a mcceutgj-ln-zoa and great grandkids. The son decided to move to [facility] and she did not want to be by herself so she sold her condo and [place] in [id number]. She smoked 1 pack/day starting in her 20s and quit in 2009. She has no history of alcohol abuse or recreational substance abuse. 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 - Substance History Use: Uses substance without health or social issues: NONE - POLST Patient has POLST: Yes POLST Status: Full Code Meds/Allgy - Home Medications Home Medications: Ambulatory Orders Medication Instructions Recorded Confirmed Aspirin EC [Ecotrin] 325 mg PO DAILY 02/22/19 07/15/21 Metoprolol Succinate [Toprol Xl] 25 mg PO DAILY 02/22/19 07/15/21 Cyanocobalamin (Vitamin B-12) 5,000 mcg PO DAILY 07/15/21 07/15/21 [Vitamin B12] Multivitamin [Theragran] 1 each PO DAILY 07/15/21 07/15/21 - Allergies Allergies/Adverse Reactions: Allergies Allergy/AdvReac Type Severity Reaction Status Date / Time No Known Drug Allergies Allergy Verified 07/15/21 18:04 Exam - Vital Signs Vital Signs: Vital Signs x48h Temp Pulse Resp BP Pulse Ox 07/16/21 07:24 36.7 C 93 16 113/45 L 100 07/16/21 03:22 36.6 C 98 20 147/44 H 100 - Physical Exam General Appearance: positive: No acute distress Eyes Bilateral: positive: Normal inspection ENT: positive: ENT inspection nml Neck: positive: Nml inspection Respiratory: positive: No respiratory distress Cardiovascular: positive: Regular rate & rhythm Peripheral Pulses: positive: 2+ Abdomen: positive: Non-tender, No distention Extremities: positive: Nml appearance Neurologic/Psychiatric: positive: Oriented x3 Conclusion and Plan - Lab Results Microbiology Results 07/15/21 20:30 Stool Occult Blood - Final Laboratory Results 07/16/21 06:47: WBC 7.8, RBC 2.75 L, Hgb 7.9 L, Hct 25.2 L, MCV 91.6, MCH 28.7, MCHC 31.3 L, RDW 15.0, Plt Count 194, MPV 10.7 07/15/21 22:21: WBC 9.2, RBC 2.79 L, Hgb 8.0 L, Hct 26.4 L, MCV 94.6, MCH 28.7, MCHC 30.3 L, RDW 14.8, Plt Count 192, MPV 10.6 07/15/21 21:09: Nasal Adenovirus (PCR) NOT DETECTED, Nasal B. parapertussis DNA (PCR) NOT DETECTED, Nasal Coronavir 229E PCR NOT DETECTED, Nasal Coronavir HKU1 PCR NOT DETECTED, Nasal Coronavir NL63 PCR NOT DETECTED, Nasal Coronavir OC43 PCR NOT DETECTED, Nasal Enterovir/Rhinovir PCR NOT DETECTED, Nasal Influenza B PCR NOT DETECTED, Nasal Influenza A PCR NOT DETECTED, Nasal Parainfluen 1 PCR NOT DETECTED, Nasal Parainfluen 2 PCR NOT DETECTED, Nasal Parainfluen 3 PCR NOT DETECTED, Nasal Parainfluen 4 PCR NOT DETECTED, Nasal RSV (PCR) NOT DETECTED, Nasal B.pertussis DNA PCR NOT DETECTED, Nasal C.pneumoniae (PCR) NOT DETECTED, Phil Human Metapneumo PCR NOT DETECTED, Nasal M.pneumoniae (PCR) NOT DETECTED, Nasal SARS-CoV-2 (PCR) NOT DETECTED 07/15/21 18:32: Troponin I High Sens 4.8 07/15/21 18:32: Sodium 133 L, Potassium 4.4, Chloride 98 L, Carbon Dioxide 22, Anion Gap 13.0, BUN 35 H, Creatinine 1.0, Estimated GFR (MDRD) 64 L, Glucose 122 H, Calcium 9.2, Total Bilirubin 1.0, AST 19, ALT 13, Alkaline Phosphatase 62, Total Protein 6.8, Albumin 3.8, Globulin 3.0, Albumin/Globulin Ratio 1.3, Lipase 28 07/15/21 18:32: WBC 11.5 H, RBC 3.32 L, Hgb 9.5 L, Hct 30.3 L, MCV 91.3, MCH 28.6, MCHC 31.4 L, RDW 14.6, Plt Count 232, MPV 10.6, Neut # (Auto) 7.7 H, Lymph # (Auto) 2.8, [place] # (Auto) 0.9, Eos # (Auto) 0.0, Baso # (Auto) 0.0, Absolute Nucleated RBC 0.00, Nucleated RBC % 0.0 - Consultation Note Consultation Note: 85 yo female with epigastric discomfort yesterday after CT orakl contrast. Feels better today but Hgb dropped from 11 to 8. EGD advised to look for source of bleeding. Plan: Consent for EGD. NPO Continue PPI
[2021-07-16] MEDS ORDERED: PROPOFOL 200 MG/20 ML VIAL IVP ONE (09:23)
[2021-07-16] MEDS ORDERED: fentaNYL 100 MCG/2 ML VIAL ONE (09:23)
--- NOTE | 2021-07-16 09:25 | ANESTHESIA ---
Pre-Anesthesia VS, & Labs - Diagnosis epigastric pain, anemia - Procedure EGD Vital Signs: Temp Pulse Resp BP Pulse Ox 36.7 C 93 16 113/45 L 100 07/16/21 07:24 07/16/21 07:24 07/16/21 07:24 07/16/21 07:24 07/16/21 07:24 Height: 5 ft 7 in Weight (kg): 58.5 kg Body Mass Index: 20.2 BMI Classification: Healthy weight - NPO >8 hours - Is Patient ?: No - Lab Results Current Lab Results: Laboratory Tests 07/16/21 06:47: WBC 7.8, RBC 2.75 L, Hgb 7.9 L, Hct 25.2 L, MCV 91.6, MCH 28.7, MCHC 31.3 L, RDW 15.0, Plt Count 194, MPV 10.7 07/16/21 06:47: Blood Type O POSITIVE, Antibody Screen NEGATIVE 07/15/21 22:21: WBC 9.2, RBC 2.79 L, Hgb 8.0 L, Hct 26.4 L, MCV 94.6, MCH 28.7, MCHC 30.3 L, RDW 14.8, Plt Count 192, MPV 10.6 07/15/21 18:32: Blood Type Recheck O POSITIVE 07/15/21 18:32: Troponin I High Sens 4.8 07/15/21 18:32: Sodium 133 L, Potassium 4.4, Chloride 98 L, Carbon Dioxide 22, Anion Gap 13.0, BUN 35 H, Creatinine 1.0, Estimated GFR (MDRD) 64 L, Glucose 122 H, Calcium 9.2, Total Bilirubin 1.0, AST 19, ALT 13, Alkaline Phosphatase 62, Total Protein 6.8, Albumin 3.8, Globulin 3.0, Albumin/Globulin Ratio 1.3, Lipase 28 07/15/21 18:32: WBC 11.5 H, RBC 3.32 L, Hgb 9.5 L, Hct 30.3 L, MCV 91.3, MCH 28.6, MCHC 31.4 L, RDW 14.6, Plt Count 232, MPV 10.6, Neut # (Auto) 7.7 H, Lymph # (Auto) 2.8, [place] # (Auto) 0.9, Eos # (Auto) 0.0, Baso # (Auto) 0.0, Absolute Nucleated RBC 0.00, Nucleated RBC % 0.0 Lab results reviewed: Yes Fish Bones: 07/16/21 06:47 07/15/21 18:32 Home Medications and Allergies Home Medications: Ambulatory Orders Cyanocobalamin (Vitamin B-12) [Vitamin B12] 5,000 mcg PO DAILY 07/15/21 Multivitamin [Theragran] 1 each PO DAILY 07/15/21 Active Medications Acetaminophen (Acetaminophen 325 Mg Tablet) 650 mg PO Q4HR PRN PRN Reason: Pain 1 to 4 Sodium Chloride (Normal Saline 0.9%) 1,000 mls @ 100 mls/hr IV .Q10H [facility] Last Admin: 07/15/21 23:42 Dose: 100 mls/hr Documented by: Morphine Sulfate (Morphine 2 Mg/Ml Carpuject) 2 mg IVP Q2HR PRN PRN Reason: Pain 8 to 10 Ondansetron HCl (Ondansetron Odt 4 Mg Tablet) 4 mg TL Q6HR PRN PRN Reason: Nausea / Vomiting Ondansetron HCl (Ondansetron 4 Mg/2 Ml Vial) 4 mg IVP Q6HR PRN PRN Reason: Nausea / Vomiting Pantoprazole Sodium (Pantoprazole 40 Mg Vial) 40 mg IVP BID [facility] Prochlorperazine Edisylate (Prochlorperazine 10 Mg/2 Ml Vial) 10 mg IVP Q6HR PRN PRN Reason: Nausea / Vomiting Sodium Chloride (Sodium Chloride Flush 0.9% 10 Ml Syringe) 10 ml IVP PRN PRN PRN Reason: NEEDED PER PROVIDER ORDERS Sodium Chloride (Sodium Chloride Flush 0.9% 10 Ml Syringe) 10 ml IVP 0100,0900,1700 [facility] Last Admin: 07/15/21 23:42 Dose: 10 ml Documented by: Aspirin EC [Ecotrin] 325 mg PO DAILY 02/22/19 Metoprolol Succinate [Toprol Xl] 25 mg PO DAILY 02/22/19 Cyanocobalamin (Vitamin B-12) [Vitamin B12] 5,000 mcg PO DAILY 07/15/21 Multivitamin [Theragran] 1 each PO DAILY 07/15/21 Allergies/Adverse Reactions: Allergies Allergy/AdvReac Type Severity Reaction Status Date / Time No Known Drug Allergies Allergy Verified 07/15/21 18:04 Anes History & Medical History - Anesthetic History Anesthesia Complications: reports: No previous complications Family history of Anesthesia Complications: Denies Family history of Malignant Hyperthermia: Denies - Medical History Cardiovascular: reports: Hypertension Pulmonary: reports: None Gastrointestinal: reports: None, Other (colon cancer with lung mets, getting chemo currently. ) Urinary: reports: None Neuro: reports: None Musculoskeletal: reports: Osteoarthritis Endocrine/Autoimmune: reports: None Blood Disorders: reports: None Skin: reports: None Smoking Status: Never smoker History of Cancer?: Yes (colon, lung) Other Past Medical History: glasses - Surgical History General: reports: Colonoscopy Eyes Ears Nose Throat (EENT): reports: Cataracts Gynecologic: reports: Hysterectomy Orthopedic: reports: Other Exam General: Alert, Oriented x3, Cooperative Dental: WNL Mouth Opening: Greater than 4 Fingerbreadths Neck Mobility: Normal Mallampati classification: II Thyromental Distance: 4-6 cm Respiratory: Lungs clear, Normal breath sounds, No respiratory distress Cardiovascular: Regular rate Neurological: Normal speech Mental/Cognitive Status: Alert/Oriented X3, Normal for patient Cognitive Status: Within normal limits Plan Anesthesia Type: Total IV Consent for Procedure(s) Verified and Reviewed: Yes Code Status: Attempt Resuscitation ASA classification: 3-Severe systemic disease Is this case an emergency?: Yes
--- NOTE | 2021-07-16 10:03 | ANESTHESIA POST OP EVALUATION ---
Anesthesia Post Eval - Post Anesthesia Eval Vitals: Last Vital Signs Temp 36.7 C 07/16/21 07:24 Pulse 93 07/16/21 07:24 Resp 16 07/16/21 07:24 BP 113/45 L 07/16/21 07:24 Pulse Ox 100 07/16/21 07:24 CV Function Including HR & BP: Stable Pain Control: Satisfactory Nausea & Vomiting: Negative Mental Status: Baseline, Other (drowsy) Respiratory Status: Airway Patent Hydration Status: Satisfactory Anesthesia Complications: None
--- NOTE | 2021-07-16 10:06 | PHARMACY PROGRESS NOTE ---
- Best Possible Medication History Admit Date and Time: 07/15/21 2200 Processed by: Nursing Medication History completed: Yes (MED REC COMPLETED BY NURSING) As the person ultimately responsible for medication therapy, providers are able to order a medication from an existing home medication list in [facility] via the "Reconcile Routine" prior to Confirmation of that medication by user support analyst supervisor. Such practice is discouraged except when the physician, in their clinical judgment, deems that a medical need exists for a medication without regard to previous use.
[2021-07-16] MEDS: SODIUM CHLORIDE 0.9% 1,000 ML IV SCH ×2 (10:26→20:53)
--- NOTE | 2021-07-16 10:27 | PROVIDER PROGRESS NOTE ---
Subjective - General Admit Date: 07/15/21 - Other Other Information/Narrative: EGD showed two superficial ulceratyions in pyloric channel. No stigmata of bleeding, no blood seen on exam. Remainder of exam Normal Recommend continue PPI. Objective - Patient Data Vital Signs: Vital Signs x48h Temp Pulse Resp BP Pulse Ox 07/16/21 10:08 70 16 124/45 L 100 07/16/21 10:03 69 15 114/42 L 100 07/16/21 09:57 80 15 112/39 L 100 07/16/21 09:54 83 15 98/33 L 100 07/16/21 09:51 76 101/29 L 07/16/21 07:24 36.7 C 93 16 113/45 L 100 07/16/21 03:22 36.6 C 98 20 147/44 H 100 Weight: Weight 07/14/21 07/15/21 07/16/21 23:59 23:59 23:59 Weight (kg) 58.5 kg 58.5 kg Intake & Output: Intake and Output Totals x24h 07/14/21 07/15/21 07/16/21 23:59 23:59 23:59 Intake Total 1000 1000 Balance 1000 1000 - Lab Results Lab Results: 07/16/21 06:47 07/15/21 18:32 Other Lab Results: Lab Results x24hrs 07/16/21 07/16/21 07/15/21 Range/Units 06:47 06:47 22:21 WBC 7.8 9.2 (4.8-10.8) x10^3/uL RBC 2.75 L 2.79 L (4.20-5.40) 10^6/uL Hgb 7.9 L 8.0 L (12.0-16.0) g/dL Hct 25.2 L 26.4 L (37.0-47.0) % MCV 91.6 94.6 (81.0-99.0) fL MCH 28.7 28.7 (27.0-31.0) pg MCHC 31.3 L 30.3 L (32.0-36.0) g/dL RDW 15.0 14.8 (12.0-15.0) % Plt Count 194 192 (130-450) 10^3/uL MPV 10.7 10.6 (7.9-10.8) fL Neut # (Auto) (1.5-6.6) 10^3/uL Lymph # (Auto) (1.5-3.5) 10^3/uL [place] # (Auto) (0.0-1.0) 10^3/uL Eos # (Auto) (0.0-0.7) 10^3/uL Baso # (Auto) (0.0-0.1) 10^3/uL Absolute Nucleated RBC x10^3/uL Nucleated RBC % /100WBC Sodium (135-145) mmol/L Potassium (3.5-5.0) mmol/L Chloride (101-111) mmol/L Carbon Dioxide (21-32) mmol/L Anion Gap (6-13) BUN (6-20) mg/dL Creatinine (0.4-1.0) mg/dL Estimated GFR (MDRD) (>89) Glucose (70-100) mg/dL Calcium (8.5-10.3) mg/dL Total Bilirubin (0.2-1.0) mg/dL AST (10-42) IU/L ALT (10-60) IU/L Alkaline Phosphatase (42-121) IU/L Troponin I High Sens (2.3-14.8) ng/L Total Protein (6.7-8.2) g/dL Albumin (3.2-5.5) g/dL Globulin (2.1-4.2) g/dL Albumin/Globulin Ratio (1.0-2.2) Lipase (22-51) U/L Nasal Adenovirus (PCR) Nasal B. parapertussis DNA (PCR) Nasal Coronavir 229E PCR Nasal Coronavir HKU1 PCR Nasal Coronavir NL63 PCR Nasal Coronavir OC43 PCR Nasal Enterovir/Rhinovir PCR Nasal Influenza B PCR Nasal Influenza A PCR Nasal Parainfluen 1 PCR Nasal Parainfluen 2 PCR Nasal Parainfluen 3 PCR Nasal Parainfluen 4 PCR Nasal RSV (PCR) Nasal B.pertussis DNA PCR Nasal C.pneumoniae (PCR) Phil Human Metapneumo PCR Nasal M.pneumoniae (PCR) Nasal SARS-CoV-2 (PCR) Blood Type O POSITIVE Blood Type Recheck Antibody Screen NEGATIVE 07/15/21 07/15/21 07/15/21 Range/Units 21:09 18:32 18:32 WBC (4.8-10.8) x10^3/uL RBC (4.20-5.40) 10^6/uL Hgb (12.0-16.0) g/dL Hct (37.0-47.0) % MCV (81.0-99.0) fL MCH (27.0-31.0) pg MCHC (32.0-36.0) g/dL RDW (12.0-15.0) % Plt Count (130-450) 10^3/uL MPV (7.9-10.8) fL Neut # (Auto) (1.5-6.6) 10^3/uL Lymph # (Auto) (1.5-3.5) 10^3/uL [place] # (Auto) (0.0-1.0) 10^3/uL Eos # (Auto) (0.0-0.7) 10^3/uL Baso # (Auto) (0.0-0.1) 10^3/uL Absolute Nucleated RBC x10^3/uL Nucleated RBC % /100WBC Sodium (135-145) mmol/L Potassium (3.5-5.0) mmol/L Chloride (101-111) mmol/L Carbon Dioxide (21-32) mmol/L Anion Gap (6-13) BUN (6-20) mg/dL Creatinine (0.4-1.0) mg/dL Estimated GFR (MDRD) (>89) Glucose (70-100) mg/dL Calcium (8.5-10.3) mg/dL Total Bilirubin (0.2-1.0) mg/dL AST (10-42) IU/L ALT (10-60) IU/L Alkaline Phosphatase (42-121) IU/L Troponin I High Sens 4.8 (2.3-14.8) ng/L Total Protein (6.7-8.2) g/dL Albumin (3.2-5.5) g/dL Globulin (2.1-4.2) g/dL Albumin/Globulin Ratio (1.0-2.2) Lipase (22-51) U/L Nasal Adenovirus (PCR) NOT DETECTED Nasal B. parapertussis DNA (PCR) NOT DETECTED Nasal Coronavir 229E PCR NOT DETECTED Nasal Coronavir HKU1 PCR NOT DETECTED Nasal Coronavir NL63 PCR NOT DETECTED Nasal Coronavir OC43 PCR NOT DETECTED Nasal Enterovir/Rhinovir PCR NOT DETECTED Nasal Influenza B PCR NOT DETECTED Nasal Influenza A PCR NOT DETECTED Nasal Parainfluen 1 PCR NOT DETECTED Nasal Parainfluen 2 PCR NOT DETECTED Nasal Parainfluen 3 PCR NOT DETECTED Nasal Parainfluen 4 PCR NOT DETECTED Nasal RSV (PCR) NOT DETECTED Nasal B.pertussis DNA PCR NOT DETECTED Nasal C.pneumoniae (PCR) NOT DETECTED Phil Human Metapneumo PCR NOT DETECTED Nasal M.pneumoniae (PCR) NOT DETECTED Nasal SARS-CoV-2 (PCR) NOT DETECTED Blood Type Blood Type Recheck O POSITIVE Antibody Screen 07/15/21 07/15/21 Range/Units 18:32 18:32 WBC 11.5 H (4.8-10.8) x10^3/uL RBC 3.32 L (4.20-5.40) 10^6/uL Hgb 9.5 L (12.0-16.0) g/dL Hct 30.3 L (37.0-47.0) % MCV 91.3 (81.0-99.0) fL MCH 28.6 (27.0-31.0) pg MCHC 31.4 L (32.0-36.0) g/dL RDW 14.6 (12.0-15.0) % Plt Count 232 (130-450) 10^3/uL MPV 10.6 (7.9-10.8) fL Neut # (Auto) 7.7 H (1.5-6.6) 10^3/uL Lymph # (Auto) 2.8 (1.5-3.5) 10^3/uL [place] # (Auto) 0.9 (0.0-1.0) 10^3/uL Eos # (Auto) 0.0 (0.0-0.7) 10^3/uL Baso # (Auto) 0.0 (0.0-0.1) 10^3/uL Absolute Nucleated RBC 0.00 x10^3/uL Nucleated RBC % 0.0 /100WBC Sodium 133 L (135-145) mmol/L Potassium 4.4 (3.5-5.0) mmol/L Chloride 98 L (101-111) mmol/L Carbon Dioxide 22 (21-32) mmol/L Anion Gap 13.0 (6-13) BUN 35 H (6-20) mg/dL Creatinine 1.0 (0.4-1.0) mg/dL Estimated GFR (MDRD) 64 L (>89) Glucose 122 H (70-100) mg/dL Calcium 9.2 (8.5-10.3) mg/dL Total Bilirubin 1.0 (0.2-1.0) mg/dL AST 19 (10-42) IU/L ALT 13 (10-60) IU/L Alkaline Phosphatase 62 (42-121) IU/L Troponin I High Sens (2.3-14.8) ng/L Total Protein 6.8 (6.7-8.2) g/dL Albumin 3.8 (3.2-5.5) g/dL Globulin 3.0 (2.1-4.2) g/dL Albumin/Globulin Ratio 1.3 (1.0-2.2) Lipase 28 (22-51) U/L Nasal Adenovirus (PCR) Nasal B. parapertussis DNA (PCR) Nasal Coronavir 229E PCR Nasal Coronavir HKU1 PCR Nasal Coronavir NL63 PCR Nasal Coronavir OC43 PCR Nasal Enterovir/Rhinovir PCR Nasal Influenza B PCR Nasal Influenza A PCR Nasal Parainfluen 1 PCR Nasal Parainfluen 2 PCR Nasal Parainfluen 3 PCR Nasal Parainfluen 4 PCR Nasal RSV (PCR) Nasal B.pertussis DNA PCR Nasal C.pneumoniae (PCR) Phil Human Metapneumo PCR Nasal M.pneumoniae (PCR) Nasal SARS-CoV-2 (PCR) Blood Type Blood Type Recheck Antibody Screen - Current Medications Current Medications: Current Medications Generic Name Dose Route Start Last Admin Trade Name Freq PRN Reason Stop Dose Admin Sodium Chloride 1,000 mls @ 100 mls/hr 07/15/21 22:00 07/16/21 09:47 Normal Saline 0.9% IV Infused .Q10H MIYA Infusion Sodium Chloride 10 ml 07/16/21 01:00 07/15/21 23:42 Sodium Chloride Flush 0.9% 10 Ml Syringe IVP 10 ml 0100,0900,1700 MIYA Administration
--- NOTE | 2021-07-16 10:49 | ANESTHESIA POST OP EVALUATION ---
Anesthesia Post Eval - Post Anesthesia Eval Vitals: Last Vital Signs Temp 36.7 C 07/16/21 07:24 Pulse 70 07/16/21 10:08 Resp 16 07/16/21 10:08 BP 124/45 L 07/16/21 10:08 Pulse Ox 100 07/16/21 10:08 CV Function Including HR & BP: Stable Pain Control: Satisfactory Nausea & Vomiting: Negative Mental Status: Baseline Respiratory Status: Airway Patent Hydration Status: Satisfactory Anesthesia Complications: None
[2021-07-16] MEDS: SODIUM CHLORIDE FLUSH 0.9% 10 ML SYRINGE IVP SCH ×3 (14:43→23:30)
[2021-07-16 15:25] LABS: HCT - HEMATOCRIT 27.7 % (37.0-47.0); HGB - HEMOGLOBIN 8.8 g/dL (12.0-16.0)
--- NOTE | 2021-07-16 16:16 | PROVIDER PROGRESS NOTE ---
Assessment/Plan - Problem List (1) Upper GI bleeding Assessment/Plan: She presented with melena and was found to be anemic and had symptoms of marked weakness, shortness of breath and epigastric pain. She underwent an EGD this morning that shows 2 superficial ulcers in the stomach. We will continue treatment with H2 blockers, transitioning from IV to p.o. Will avoid aspirin and NSAIDs. Her daily ASA 81 mg has phil stopped. Will monitor for another 12-24 hours regarding her anemia in case she needs chiang sfusion, before being discharged in stable condition. She is to be seen in follow-up by Dr. Smith for her biopsy results as an outpatient. (2) Acute anemia Assessment/Plan: The hemoglobin has dropped from 11, to 9, to 8 and her afternoon hemoglobin is pending today. Would transfuse if hemoglobin drops under 7. We will also plan on starting oral iron replacement therapy as her diet is advanced. We will treat the underlying cause (see #1 above) (3) Colon cancer Qualifiers: Colon location: unspecified part of colon Qualified Code(s): C18.9 - Malignant neoplasm of colon, unspecified Assessment/Plan: As per Hx - Current Meds Current Meds: Current Medications Generic Name Dose Route Start Last Admin Trade Name Freq PRN Reason Stop Dose Admin Sodium Chloride 1,000 mls @ 100 mls/hr 07/15/21 22:00 07/16/21 10:26 Normal Saline 0.9% IV 100 mls/hr .Q10H MIYA Administration Sodium Chloride 10 ml 07/16/21 01:00 07/16/21 14:43 Sodium Chloride Flush 0.9% 10 Ml Syringe IVP Not Given 0100,0900,1700 MIYA - Lab Result Fish Bone Diagrams: 07/16/21 15:20 07/15/21 18:32 - Additional Planning My Orders: My Active Orders 07/16/21 Dinner Dysphagia Puree Diet [DIET] 07/16/21 21:00 Pantoprazole [Protonix] 40 mg IVP BID 07/17/21 Breakfast DIET [Soft Mechanical Diet] [DIET] Subjective - Subjective Patient Reports: Feeling Better (Her weakness is better but she has been in bed afterversed for an EGD), Resting Comfortably Objective Vital Signs: Vital Signs - 24 hr 09/07/21 09/07/21 09/07/21 18:04 20:11 20:16 Temperature 36.1 C L Heart Rate 88 75 Heart Rate [ Brachial] Heart Rate [ 87 Sitting] Heart Rate [ 118 H Standing] Heart Rate [ 85 Supine] Respiratory 18 20 Rate Blood Pressure 96/52 L 150/50 H Blood Pressure [Right Brachial artery] Blood Pressure 133/105 H [Sitting] Blood Pressure 143/57 H [Standing] Blood Pressure 139/113 H [Supine] O2 Saturation 100 100 07/15/21 07/15/21 07/15/21 22:21 23:00 23:36 Temperature 36.5 C 36.6 C Heart Rate 85 85 Heart Rate [ 81 Brachial] Heart Rate [ Sitting] Heart Rate [ Standing] Heart Rate [ Supine] Respiratory 20 15 16 Rate Blood Pressure 123/65 Blood Pressure 152/55 H [Right Brachial artery] Blood Pressure [Sitting] Blood Pressure [Standing] Blood Pressure [Supine] O2 Saturation 100 100 100 07/16/21 07/16/21 07/16/21 03:22 07:24 09:51 Temperature 36.6 C 36.7 C Heart Rate Heart Rate [ 98 93 76 Brachial] Heart Rate [ Sitting] Heart Rate [ Standing] Heart Rate [ Supine] Respiratory 20 16 Rate Blood Pressure Blood Pressure 147/44 H 113/45 L 101/29 L [Right Brachial artery] Blood Pressure [Sitting] Blood Pressure [Standing] Blood Pressure [Supine] O2 Saturation 100 100 07/16/21 07/16/21 07/16/21 09:54 09:57 10:03 Temperature Heart Rate Heart Rate [ 83 80 69 Brachial] Heart Rate [ Sitting] Heart Rate [ Standing] Heart Rate [ Supine] Respiratory 15 15 15 Rate Blood Pressure Blood Pressure 98/33 L 112/39 L 114/42 L [Right Brachial artery] Blood Pressure [Sitting] Blood Pressure [Standing] Blood Pressure [Supine] O2 Saturation 100 100 100 07/16/21 07/16/21 10:08 15:41 Temperature 36.3 C L Heart Rate Heart Rate [ 70 110 H Brachial] Heart Rate [ Sitting] Heart Rate [ Standing] Heart Rate [ Supine] Respiratory 16 18 Rate Blood Pressure Blood Pressure 124/45 L 138/40 H [Right Brachial artery] Blood Pressure [Sitting] Blood Pressure [Standing] Blood Pressure [Supine] O2 Saturation 100 100 Oxygen O2 Source Room air I&O (Last 24 Hrs): Intake and Output Totals x24h 07/14/21 07/15/21 07/16/21 23:59 23:59 23:59 Intake Total 1000 1200 Balance 1000 1200 General: Alert, Oriented x3 HEENT: Mucous membr. moist/pink Neck: Supple, No JVD Neuro: Alert, Non Focal Cardiovascular: Regular rate, No murmurs Respiratory: No respiratory distress, Breath sounds nml Abdomen: Normal bowel sounds, Soft, No tenderness Extremities: No clubbing, No edema - Results Results: Laboratory Results WBC 7.8 x10^3/uL (4.8-10.8) 07/16/21 06:47 RBC 2.75 10^6/uL (4.20-5.40) L 07/16/21 06:47 Hgb 8.8 g/dL (12.0-16.0) L 07/16/21 15:20 Hct 27.7 % (37.0-47.0) L 07/16/21 15:20 MCV 91.6 fL (81.0-99.0) 07/16/21 06:47 MCH 28.7 pg (27.0-31.0) 07/16/21 06:47 MCHC 31.3 g/dL (32.0-36.0) L 07/16/21 06:47 RDW 15.0 % (12.0-15.0) 07/16/21 06:47 Plt Count 194 10^3/uL (130-450) 07/16/21 06:47 MPV 10.7 fL (7.9-10.8) 07/16/21 06:47 Neut # (Auto) 7.7 10^3/uL (1.5-6.6) H 07/15/21 18:32 Lymph # (Auto) 2.8 10^3/uL (1.5-3.5) 07/15/21 18:32 [place] # (Auto) 0.9 10^3/uL (0.0-1.0) 07/15/21 18:32 Eos # (Auto) 0.0 10^3/uL (0.0-0.7) 07/15/21 18:32 Baso # (Auto) 0.0 10^3/uL (0.0-0.1) 07/15/21 18:32 Absolute Nucleated RBC 0.00 x10^3/uL 07/15/21 18:32 Nucleated RBC % 0.0 /100WBC 07/15/21 18:32 Sodium 133 mmol/L (135-145) L 07/15/21 18:32 Potassium 4.4 mmol/L (3.5-5.0) 07/15/21 18:32 Chloride 98 mmol/L (101-111) L 07/15/21 18:32 Carbon Dioxide 22 mmol/L (21-32) 07/15/21 18:32 Anion Gap 13.0 (6-13) 07/15/21 18:32 BUN 35 mg/dL (6-20) H 07/15/21 18:32 Creatinine 1.0 mg/dL (0.4-1.0) 07/15/21 18:32 Estimated GFR (MDRD) 64 (>89) L 07/15/21 18:32 Glucose 122 mg/dL (70-100) H 07/15/21 18:32 Calcium 9.2 mg/dL (8.5-10.3) 07/15/21 18:32 Total Bilirubin 1.0 mg/dL (0.2-1.0) 07/15/21 18:32 AST 19 IU/L (10-42) 07/15/21 18:32 ALT 13 IU/L (10-60) 07/15/21 18:32 Alkaline Phosphatase 62 IU/L (42-121) 07/15/21 18:32 Troponin I High Sens 4.8 ng/L (2.3-14.8) 07/15/21 18:32 Total Protein 6.8 g/dL (6.7-8.2) 07/15/21 18:32 Albumin 3.8 g/dL (3.2-5.5) 07/15/21 18:32 Globulin 3.0 g/dL (2.1-4.2) 07/15/21 18:32 Albumin/Globulin Ratio 1.3 (1.0-2.2) 07/15/21 18:32 Lipase 28 U/L (22-51) 07/15/21 18:32 Nasal Adenovirus (PCR) NOT DETECTED 07/15/21 21:09 Nasal B. parapertussis DNA (PCR) NOT DETECTED 07/15/21 21:09 Nasal Coronavir 229E PCR NOT DETECTED 07/15/21 21:09 Nasal Coronavir HKU1 PCR NOT DETECTED 07/15/21 21:09 Nasal Coronavir NL63 PCR NOT DETECTED 07/15/21 21:09 Nasal Coronavir OC43 PCR NOT DETECTED 07/15/21 21:09 Nasal Enterovir/Rhinovir PCR NOT DETECTED 07/15/21 21:09 Nasal Influenza B PCR NOT DETECTED 07/15/21 21:09 Nasal Influenza A PCR NOT DETECTED 07/15/21 21:09 Nasal Parainfluen 1 PCR NOT DETECTED 07/15/21 21:09 Nasal Parainfluen 2 PCR NOT DETECTED 07/15/21 21:09 Nasal Parainfluen 3 PCR NOT DETECTED 07/15/21 21:09 Nasal Parainfluen 4 PCR NOT DETECTED 07/15/21 21:09 Nasal RSV (PCR) NOT DETECTED 07/15/21 21:09 Nasal B.pertussis DNA PCR NOT DETECTED 07/15/21 21:09 Nasal C.pneumoniae (PCR) NOT DETECTED 07/15/21 21:09 Phil Human Metapneumo PCR NOT DETECTED 07/15/21 21:09 Nasal M.pneumoniae (PCR) NOT DETECTED 07/15/21 21:09 Nasal SARS-CoV-2 (PCR) NOT DETECTED 07/15/21 21:09 Blood Type O POSITIVE 07/16/21 06:47 Blood Type Recheck O POSITIVE 07/15/21 18:32 Antibody Screen NEGATIVE 07/16/21 06:47 - Procedures Procedures: Procedures REPLACEMENT OF LEFT LENS WITH SYNTH SUB, PERC APPROACH (02/23/19) REPLACEMENT OF RIGHT LENS WITH SYNTH SUB, PERC APPROACH (05/04/19)
[2021-07-16] MEDS: PANTOPRAZOLE 40 MG VIAL IVP SCH (20:53)
[2021-07-16] MEDS: ACETAMINOPHEN 325 MG TABLET PO PRN (23:24)
[2021-07-16] MEDS: MORPHINE 2 MG/ML CARPUJECT IVP PRN (23:30)
[2021-07-17] MEDS: MORPHINE 2 MG/ML CARPUJECT IVP PRN ×4 (02:21→08:52)
[2021-07-17] MEDS: SODIUM CHLORIDE 0.9% 1,000 ML IV SCH (06:49)
[2021-07-17 08:21] LABS: HCT - HEMATOCRIT 23.8 % (37.0-47.0); HGB - HEMOGLOBIN 7.6 g/dL (12.0-16.0); MEAN CORPUSCULAR HEMOGLOBIN 29.8 pg (27.0-31.0); MEAN CORPUSCULAR HGB CONC 31.9 g/dL (32.0-36.0); MEAN CORPUSCULAR VOLUME 93.3 fL (81.0-99.0); MEAN PLATELET VOLUME 10.2 fL (7.9-10.8); RED BLOOD COUNT 2.55 10^6/uL (4.20-5.40); RED CELL DISTRIBUTION WIDTH 15.3 % (12.0-15.0); WHITE BLOOD COUNT 8.2 x10^3/uL (4.8-10.8)
--- NOTE | 2021-07-17 08:31 | XRAY Report ---
PROCEDURE: Shoulder 2 View RT INDICATIONS: Pain after repositioning in bed TECHNIQUE: 3 views of the shoulder were acquired. COMPARISON: None. FINDINGS: Bones: No fractures or dislocations. No suspicious bony lesions. Visualized ribs appear intact. Se megan acromioclavicular and glenohumeral degenerative narrowing is present. Soft tissues: No suspicious soft tissue calcifications. IMPRESSION: Severe degenerative changes. No visualized acute fracture or dislocation. However, occul t injury cannot be excluded. Recommend short interval imaging follow-up in 7-10 days as clinically in dicated for additional evaluation. Reviewed by: Mackenzie Danielle MD on 07/17/2021 8:30 AM PDT Approved by: Mackenzie Danielle MD on 07/17/2021 8:30 AM PDT Station ID: [id number]
[2021-07-17] MEDS: ACETAMINOPHEN 325 MG TABLET PO PRN (08:52)
[2021-07-17] MEDS: PANTOPRAZOLE 40 MG VIAL IVP SCH (08:53)
[2021-07-17] MEDS: SODIUM CHLORIDE FLUSH 0.9% 10 ML SYRINGE IVP SCH ×2 (08:53→20:52)
[2021-07-17] MEDS ORDERED: METOPROLOL SUCCINATE 25 MG TABLET PO SCH (09:03)
[2021-07-17] MEDS ORDERED: LIDOCAINE PATCH 5% TOP PRN (09:22)
[2021-07-17] MEDS ORDERED: FERROUS GLUCONATE 324 MG TABLET PO SCH (10:00)
--- NOTE | 2021-07-17 12:39 | Discharge Plan ---
Discharge Plan Problem Reviewed?: Yes Disposition: Home, Self Care Condition: Stable Prescriptions: Ferrous Gluconate [Fergon] 324 mg PO DAILY #30 tablet Lidocaine Patch 5% [Lidoderm Patch] 1 each PATCH DAILY PRN #7 patch PRN Reason: Pain Pantoprazole [Protonix] 40 mg PO BID #60 tablet Diet: Soft Activity Restrictions: Activity as Tolerated Shower Restrictions: No Instruction Topics: Peptic Ulcer, Ulcer Bleeding Peptic Tx Health Concerns: You were hospitalized to evaluate anemia and you were found to have 2 gastric ulcers. The bleeding appears to have stopped. Biopsies of the area were done during your upper endoscopy and results usually come back in 1 week. You are anemic and you needed a transfusion of blood. You are being started on iron replacements to build up your blood. The prescription was electronically sent to your [email or web address] pharmacy in [place]. You are being sent home with a new prescription for treating the stomach ulcer (Protonix). The prescription was electronically sent to your pharmacy. You should stay on a bland, soft diet while the ulcers are healing. You may resume all your usual pre-hospital medications EXCEPT take NO ASPIRIN or products like Advil or Motrin for at least 1 month. You should have follow-up with your Primary Care Doctor in 1 to 2 weeks to get results of the biopsy, and for a hospital follow-up appointment, and to check your hemoglobin (your anemia). Also, because of the right shoulder pain, you may use this sling and a new prescription for Lidocaine patches has been sent to your pharmacy also. If it is still giving you trouble, please be seen in the Orthopedic clinic or see your primary care provider. Plan of Treatment: As above. Care Goals: Improvement in symptoms and stabilization are the goals. Assessment: The patient understands and is agreeable with the plan. Additional Instructions or Follow Up instructions: If you have new or worsening symptoms, call your PCP for advice or come to the ER. No Smoking: If you smoke, Please STOP! Call for help. Follow-up with: SOHAN RANDLE ARNP [Primary Care Provider] -
[2021-07-17 13:12] LABS: HCT - HEMATOCRIT 22.9 % (37.0-47.0); HGB - HEMOGLOBIN 7.1 g/dL (12.0-16.0)
[2021-07-17 19:08] VITALS: BP 118/65
--- NOTE | 2021-07-17 21:37 | DISCHARGE SUMMARY ---
"Discharge Summary Admit Date: 07/15/21 Discharge Date: 07/17/21 Discharging Provider: Dr Karen Arguello Primary Care Provider: Dr Rachelle Sandhu Code Status: Attempt Resuscitation Condition at Discharge: Stable Discharge Disposition: 01 Home, Self Care - HPI History of Present Illness: From the admission H&P of Dr Larissa Contreras: This is an 85-year-old black female who is followed by Rachelle Sandhu at [facility] [place] and was diagnosed with colon cancer in June 2020 but also has a history of non-small cell lung cancer. She is undergoing chemotherapy but can't tell me the name nor can she remember her last dosing. Her Oncologist is Gerardo Schilling MD. She has no previous history of ulcer disease, and we do not have records to indicate what her staging is. She is on aspirin daily. She also takes nonsteroidals for arthritis. But she has not had any for the last 3 to 4 days. She lives with her son. She presented to the emergency room via private vehicle with chest pain that started last night. Accompanying the chest pain is just dyspnea on exertion. Pain is in the epigastric reason, nonstop, a burning sensation. No radiation. Driving here in the car did not make the pain worse or better. Eating does not make it worse or better. Last bowel movement was today. She does not recall if it was black or brown. She knows that she did not have any blood. She denies any abdominal pain. Diarrhea. She states that in spite of the cancer and chemotherapy she has been doing well. She still has a relatively decent appetite. Has lost weight but still likes food. Denies cough, wheezing. Had no fatigue or dyspnea on exertion until it was sudden onset yesterday. Denies headache, syncope. Temperature is 36.1. Heart rate 88. Blood pressure 96/52. She was on 100% on room air. Dr. Luo verbally reports that her exam was negative to him from a cardiac perspective. She was not a congestive heart failure. Was not tachypnei c or in respiratory distress. He did a rectal exam of black stool and she was heme positive. She had blood work done yesterday as part of her follow-up for chemo and treatment and hemoglobin was 11.4. Today hemoglobin is 9.5. Troponin was 4.8. Sodium 133. BUN [address] of abdomen and pelvis was done today prior to her visit to the emergency room. She has marked diffuse centrilobular emphysema, similar to prior exams. Multiple lung nodules are similar to her previous exam. She has a new nodule within worsening groundglass density of the right upper lobe. No pleural effusion. No bony abnormalities suggestive of metastatic bone disease. Colon was unremarkable. She has slight interval increase in the enhancing nodule in the left lower quadrant of her abdomen when compared to March 10, 2021. And unchanged calcified right adnexal lesion. She is now placed in Observation to evaluate and manage acute blood loss anemia associated with black, heme positive stool. - CONSULTS | PROCEDURES Consultations: Dr Vikas Smith (Gen Surgery) Procedures: EGD - HOSPITAL COURSE Hospital Course: (1) Upper GI bleeding She presented with melena and was found to be anemic and had symptoms of marked weakness, shortness of breath and epigastric pain. She underwent an EGD that showed 2 superficial ulcers in the stomach. We ordered treatment with H2 blockers, transitioning from IV to p.o. and advised avoidance of aspirin and NSAIDs. Her daily ASA 81 mg was stopped. She is to be seen in follow-up by Dr. Smiht for her biopsy results as an outpatient. (2) Acute anemia The hemoglobin dropped from 11, to 9, to 8 and on her final day was 7.1. As such she received 1 Unit of blood on the day of discharge. She was started and discharged on oral iron replacement therapy. (3) Colon cancer As per Hx - ALLERGIES Allergies/Adverse Reactions: Allergies Allergy/AdvReac Type Severity Reaction Status Date / Time No Known Drug Allergies Allergy Verified 07/15/21 18:04 - MEDICATIONS Home Medications: Ambulatory Orders Medication Instructions Recorded Confirmed Metoprolol Succinate [Toprol Xl] 25 mg PO DAILY 02/22/19 07/15/21 Cyanocobalamin (Vitamin B-12) 5,000 mcg PO DAILY 07/15/21 07/15/21 [Vitamin B12] Multivitamin [Theragran] 1 each PO DAILY 07/15/21 07/15/21 Ferrous Gluconate [Fergon] 324 mg PO DAILY #30 tablet 07/17/21 Lidocaine Patch 5% [Lidoderm Patch] 1 each PATCH DAILY PRN #7 patch 07/17/21 Pantoprazole [Protonix] 40 mg PO BID #60 tablet 07/17/21 - PHYSICAL EXAM AT DISCHARGE General Appearance: positive: No acute distress, Alert, Other (Thin and tall female) Eyes Bilateral: positive: Normal inspection, EOMI ENT: positive: ENT inspection nml, No signs of dehydration Neck: positive: Nml inspection, No JVD Respiratory: positive: No respiratory distress, Breath sounds nml Cardiovascular: positive: Regular rate & rhythm, No murmur Abdomen: positive: Non-tender, Nml bowel sounds, No distention Skin: positive: Warm, Dry Extremities: positive: Non-tender, No pedal edema Neurologic/Psychiatric: positive: Oriented x3 (Non-focal) - LABS Result Diagrams: 07/17/21 13:05 07/15/21 18:32 - FOLLOW UP Follow Up: See Dr Smith (Gen Surgery) in 1 week, see PCP in 1-2 weeks for Hgb check and hospital follow-up visit. - TIME SPENT Time Spent in Discharge (Minutes): 50"
== END 2021-07-17 20:00 | disposition home or self-care (01) ==
LOC: ED 18:01 → MS3 22:00
PROVIDERS: ADMIT Specialist; ATTEND Internal Medicine
PROC: 0DJ08ZZ Inspection of Upper Intestinal Tract, Via Natural or Artificial Opening Endoscopic (ICD-10-PCS; principal; 2021-07-16 09:30)
DX: K29.61 Other gastritis with bleeding (principal); B96.81 Helicobacter pylori [H. pylori] as the cause of diseases classified elsewhere; D62 Acute posthemorrhagic anemia; C18.9 Malignant neoplasm of colon, unspecified; C78.00 Secondary malignant neoplasm of unspecified lung; J43.2 Centrilobular emphysema; I10 Essential (primary) hypertension; M19.90 Unspecified osteoarthritis, unspecified site; H54.7 Unspecified visual loss; Z20.822 Contact with and (suspected) exposure to COVID-19; Z79.899 Other long term (current) drug therapy; Z79.82 Long term (current) use of aspirin; Z87.891 Personal history of nicotine dependence
CPT/HCPCS: 0202U; 36415; 36430; 80053; 82272; 83690; 84484; 85014; 85018; 85025; 85027; 86850; 86900; 86901; 86920; 93005; 96374; 96375; 96376; 99284

== ENCOUNTER 2024-05-30 19:22 | Emergency (ER) | payer MEDICARE ==
[2024-05-30 21:24] LABS: CORONAVIRUS 229E-RESP PCR NOT DETECTED; CORONAVIRUS HKU1-RESP PCR NOT DETECTED; CORONAVIRUS NL63-RESP PCR NOT DETECTED; CORONAVIRUS OC43-RESP PCR NOT DETECTED
[2024-05-30 21:25] LABS: B. PARAPERTUSSIS- RESP PCR PAN NOT DETECTED; B. PERTUSSIS- RESP PCR PANEL NOT DETECTED; C. PNEUMONIAE- RESP PCR PANEL NOT DETECTED; HUMAN METAPNEUMOVIRUS NOT DETECTED; INFLUENZA A- RESP PCR PANEL NOT DETECTED; INFLUENZA B - RESP PCR PANEL NOT DETECTED; M. PNEUMONIAE- RESP PCR PANEL NOT DETECTED; PARAINFLUENZA VIRUS 1 NOT DETECTED; PARAINFLUENZA VIRUS 2 NOT DETECTED; PARAINFLUENZA VIRUS 3 NOT DETECTED; PARAINFLUENZA VIRUS 4 NOT DETECTED; RHINOVIRUS/ENTEROVIRUS NOT DETECTED; RSV- RESP PCR PANEL NOT DETECTED; SARS-CoV-2 -RESP PCR PANEL DETECTED
[2024-05-30] MEDS ORDERED: iohexoL-300 100 ML VIAL ONE (21:34)
[2024-05-30 21:43] LABS: BASOPHILS % (AUTO) 0.2 %; EOSINOPHILS % (AUTO) 0.1 %; HCT - HEMATOCRIT 40.6 % (37.0-47.0); HGB - HEMOGLOBIN 12.7 g/dL (12.0-16.0); LYMPHOCYTES # (AUTO) 1.2 10^3/uL (1.5-3.5); LYMPHOCYTES % (AUTO) 10.5 %; MEAN CORPUSCULAR HEMOGLOBIN 28.8 pg (27.0-31.0); MEAN CORPUSCULAR HGB CONC 31.3 g/dL (32.0-36.0); MEAN CORPUSCULAR VOLUME 92.1 fL (81.0-99.0); MEAN PLATELET VOLUME 10.1 fL (7.9-10.8); MONOCYTES # (AUTO) 1.2 10^3/uL (0.0-1.0); MONOCYTES % (AUTO) 10.2 %; NEUTROPHILS # (AUTO) 9.3 10^3/uL (1.5-6.6); NEUTROPHILS % (AUTO) 78.4 %; PLT - PLATELET COUNT 170 10^3/uL (130-450); RED BLOOD COUNT 4.41 10^6/uL (4.20-5.40); RED CELL DISTRIBUTION WIDTH 14.3 % (12.0-15.0); WHITE BLOOD COUNT 11.8 x10^3/uL (4.8-10.8)
--- NOTE | 2024-05-30 21:56 | XRAY Report ---
PROCEDURE: Chest 1V INDICATIONS: Chest pain TECHNIQUE: One view of the chest was acquired. COMPARISON: None. FINDINGS: Surgical changes and devices: Left chest wall port hip projects over the low SVC. Lungs and pleura: No pleural effusions or pneumothorax. Lungs are clear. Mediastinum: Mediastinal contours appear normal. Heart size is normal. Bones and chest wall: No suspicious bony lesions. Overlying soft tissues appear unremarkable. IMPRESSION: No acute cardiopulmonary process. Reviewed by: Korey Mallory MD on 05/30/2024 9:54 PM PDT Approved by: Korey Mallory MD on 05/30/2024 9:54 PM PDT Station ID: [id number]
[2024-05-30 22:00] LABS: ALBUMIN/GLOBULIN RATIO 1.2 (1.0-2.2); CALCIUM 9.4 mg/dL (8.5-10.3); CREATININE 0.8 mg/dL (0.6-1.3); TOTAL PROTEIN 7.3 g/dL (6.4-8.9)
[2024-05-30 22:04] LABS: TROPONIN I HIGH SENSITIVITY 12.5 ng/L (2.3-14.8)
--- NOTE | 2024-05-30 22:05 | ED Physician Documentation ---
History of Present Illness - Stated complaint Stated Complaint: CHEST PX - Chief complaint Chief Complaint: Cardiac - History obtained from History obtained from: Patient - Additonal information Additional information: HPI from patient. Patient c/o left lower anterolateral chest pain, dyspnea. 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 She has h/o lung CA and colon CA and is undergoing chemotherapy at [facility]. Chest pain is pleuritic. Denies cough, fever. No inciting event. 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 : None HEENT: Chronic vision loss Psych: None Musculoskeletal: Osteoarthritis Derm: None - Past Surgical History Past Surgical History: Yes General: Colonoscopy Ortho: Other /WATCH TECHNICIAN: Hysterectomy HEENT: Cataracts - Present Medications Home Medications: Ambulatory Orders Medication Instructions Recorded Confirmed Metoprolol Succinate [Toprol Xl] 25 mg PO DAILY 02/22/19 07/15/21 Cyanocobalamin (Vitamin B-12) 5,000 mcg PO DAILY 07/15/21 07/15/21 [Vitamin B12] Multivitamin [Theragran] 1 each PO DAILY 07/15/21 07/15/21 Ferrous Gluconate [Fergon] 324 mg PO DAILY #30 tablet 07/17/21 Lidocaine Patch 5% [Lidoderm Patch] 1 each PATCH DAILY PRN #7 patch 07/17/21 Pantoprazole [Protonix] 40 mg PO BID #60 tablet 07/17/21 HYDROcod/ACETAM 5/325 [[place] 5/325] 1 ea PO Q6H PRN #14 tablet 06/21/23 Nirmatrelvir/Ritonavir [Paxlovid 1 each PO UD #1 kit 05/31/24 300-100 mg Dose Pack] - Allergies Allergies/Adverse Reactions: Allergies Allergy/AdvReac Type Severity Reaction Status Date / Time No Known Drug Allergies Allergy Verified 07/15/21 18:04 - Social History Does the pt smoke?: No Smoking Status: Never smoker Does the pt drink ETOH?: No Does the pt have substance abuse?: No - Immunizations Immunizations are current?: Yes - POLST Patient has POLST: Yes POLST Status: Full Code PD ED PE NORMAL - Vitals Vital signs reviewed: Yes - General General: Alert and oriented X 3, No acute distress, Other (cachectic but no acute/apparent distress, speaks in full sentences) - HEENT HEENT: Moist mucous membranes - Neck Neck: Supple, no meningeal sign - Cardiac Cardiac: No murmur - Respiratory Respiratory: No respiratory distress, Other (left base rhonchi) - Abdomen Abdomen: Soft, Non tender - Derm Derm: Normal color, Warm and dry - Extremities Extremities: No edema - Neuro Neuro: Alert and oriented X 3 PD ED PE EXPANDED - Cardiac Cardiac: Tachy, Regular Rhythm Results - Vitals Vitals: Oxygen O2 Source Room air - EKG (time done) No standard instances EKG releavant findings:: EKG personally interpreted by author of this note. Relevant findings are: Rate: Rate (enter#) (122) Rhythm: NSR, Normal P waves [place]: Normal Intervals: Normal MD, QRS normal QRS: Normal Ischemia: Normal ST segments, Q waves (V1, V2) Other comments: Other comments (PAC) - Labs Labs: Laboratory Tests 05/30/24 05/30/24 05/30/24 20:10 21:35 21:35 WBC 11.8 H RBC 4.41 Hgb 12.7 Hct 40.6 MCV 92.1 MCH 28.8 MCHC 31.3 L RDW 14.3 Plt Count 170 MPV 10.1 Neut # (Auto) 9.3 H Lymph # (Auto) 1.2 L [place] # (Auto) 1.2 H Eos # (Auto) 0.0 Baso # (Auto) 0.0 Absolute Nucleated RBC 0.00 Nucleated RBC % 0.0 Sodium 135 Potassium 4.0 Chloride 100 L Carbon Dioxide 26 Anion Gap 9.0 BUN 16 Creatinine 0.8 Estimated GFR (MDRD) 82 L Glucose 99 Lactic Acid Calcium 9.4 Total Bilirubin 2.0 H AST 26 ALT 16 Alkaline Phosphatase 53 Troponin I High Sens 12.5 Total Protein 7.3 Albumin 4.0 Globulin 3.3 Albumin/Globulin Ratio 1.2 Lipase 17 Nasal Adenovirus (PCR) NOT DETECTED Nasal B. parapertussis DNA (PCR) NOT DETECTED Nasal Coronavir 229E PCR NOT DETECTED Nasal Coronavir HKU1 PCR NOT DETECTED Nasal Coronavir NL63 PCR NOT DETECTED Nasal Coronavir OC43 PCR NOT DETECTED Nasal Enterovir/Rhinovir PCR NOT DETECTED Nasal Influenza B PCR NOT DETECTED Nasal Influenza A PCR NOT DETECTED Nasal Parainfluen 1 PCR NOT DETECTED Nasal Parainfluen 2 PCR NOT DETECTED Nasal Parainfluen 3 PCR NOT DETECTED Nasal Parainfluen 4 PCR NOT DETECTED Nasal RSV (PCR) NOT DETECTED Nasal B.pertussis DNA PCR NOT DETECTED Nasal C.pneumoniae (PCR) NOT DETECTED Phil Human Metapneumo PCR NOT DETECTED Nasal M.pneumoniae (PCR) NOT DETECTED Nasal SARS-CoV-2 (PCR) DETECTED A 05/30/24 21:35 WBC RBC Hgb Hct MCV MCH MCHC RDW Plt Count MPV Neut # (Auto) Lymph # (Auto) [place] # (Auto) Eos # (Auto) Baso # (Auto) Absolute Nucleated RBC Nucleated RBC % Sodium Potassium Chloride Carbon Dioxide Anion Gap BUN Creatinine Estimated GFR (MDRD) Glucose Lactic Acid 0.9 Calcium Total Bilirubin AST ALT Alkaline Phosphatase Troponin I High Sens Total Protein Albumin Globulin Albumin/Globulin Ratio Lipase Nasal Adenovirus (PCR) Nasal B. parapertussis DNA (PCR) Nasal Coronavir 229E PCR Nasal Coronavir HKU1 PCR Nasal Coronavir NL63 PCR Nasal Coronavir OC43 PCR Nasal Enterovir/Rhinovir PCR Nasal Influenza B PCR Nasal Influenza A PCR Nasal Parainfluen 1 PCR Nasal Parainfluen 2 PCR Nasal Parainfluen 3 PCR Nasal Parainfluen 4 PCR Nasal RSV (PCR) Nasal B.pertussis DNA PCR Nasal C.pneumoniae (PCR) Phil Human Metapneumo PCR Nasal M.pneumoniae (PCR) Nasal SARS-CoV-2 (PCR) - Rads (name of study) chest xray Relevant Findings:: Prelim report reviewed, See rad report CT chest Relevant Findings:: Prelim report reviewed, See rad report PD Medical Decision Making - ED course Complexity details: reviewed results, re-evaluated patient, considered dif ferential, d/w patient ED course: Initially hypoxic with room-air pulse ox 86%, correcting to 95% with 4L NC oxygen. Over the course of her ED stay, she was gradually and successfully weaned off oxygen (95% room air prior to d/c). ST to 130s early in stay, given 1 liter NS IV and gradually improved to as low as upper 90s (when asleep) although still mildly tachycardic at times prior to d/c (100-110s). Mild leukocytosis (WBC 11.8) on otherwise unremarkable CBC, mildly elevated bilirubin (2.0) on otherwise unremarkable ER abdominal panel. Normal lactate (0.9) and hs-cTn. Respiratory PCR panel is POSITIVE for COVID (sars-COV-2). Unremarkable CXR. Given a risk for, and symptoms and signs s/o, PE, CT chest (PE study) undertaken. There is no evidence of PE on this study, but notable for multiple right upper/mid lobe nodules concerning for malignancy. Results d/w patient (patient's son is also in ED at bedside during this discussion) including COVID result and CT chest findings. They both indicate patient's PMHx includes lung CA. I explained that she should be reevaluated by her PCP and/or hem/onc, as there are no comparative studies available in [facility] (for purposes of seeing if the lung findings are new or, if not, better/worse/same). Patient's son says she had recent outpatient CT chest at another hospital but he cannot access results at this time and I do not see result when I query [employer] [employer] system (that system does not even have entry for this patient's name/). Return precautions reviewed. I have electronically submitted rx for Paxlovid to patient's pharmacy of choice. Departure - Departure Disposition: 01 Home, Self Care Clinical Impression: COVID-19 Condition: Good Instructions: ED Chest Pain Atypical Unkn Cause, ED Viral Syndrome Prescriptions: Nirmatrelvir/Ritonavir [Paxlovid 300-100 mg Dose Pack] 1 each PO UD #1 kit Comments: There were no concerning or diagnostic findings on patricia's blood tests. You tested positive for COVID patricia. There were some abnormalities on your CT scan of the chest, but none that would explain your symptoms (left lower chest pain). As we discussed, multiple lung nodules of the right upper and right middle lobes of your right lung are noted on the CT scan. Contact your oncologist in the morning to make them aware of your emergency department visit as well as these abnormalities. They can compare patricia's results with your recent CAT scan of your chest performed elsewhere to see if this is a new finding. I have electronically submitted a prescription for Paxlovid (anti-viral med ication for COVID) to the [facility] pharmacy in [place]. Discharge Date/Time: 05/31/24 02:05
[2024-05-30] MEDS: SODIUM CHLORIDE 0.9% 1,000 ML IV STA (22:32)
[2024-05-30] MEDS: iohexoL-300 100 ML VIAL IVP ONE (23:56)
[2024-05-31 00:41] VITALS: O2SAT 95
--- NOTE | 2024-05-31 00:43 | CT Report ---
PROCEDURE: Angio Chest INDICATIONS: chest pain, dyspnea, hypoxia CONTRAST: Omni 300, 80mls TECHNIQUE: After the administration of intravenous contrast, 2 mm axial images were acquired from the pulmonary apices to the posterior costophrenic angles during the arterial phase. In addition, 1 mm lung kernel and 5 mm soft tissue kernel reconstructions were performed. 3-dimensional coronal oblique maximum int ensity projection (MIP) reformats, 8 mm axial MIP, and 5 mm coronal and sagittal MPR reformats were t hen performed through the thorax. For radiation dose reduction, the following was used: automated exp osure control, adjustment of mA and/or kV according to patient size. COMPARISON: Chest radiograph from earlier same day FINDINGS: Image quality: Diagnostic. Large vessels: No filling defects within the opacified pulmonary arteries, accounting for motion and contrast timing. No evidence of acute aortic syndrome or aortic aneurysm. Lungs and pleura: Moderate-severe upper lobe predominant pulmonary emphysematous changes. Bibasilar a telectasis. Patchy consolidation left lower lobe. Mild subpleural scarring. Minimal bronchiectasis of the left lower lobe. Similar but less pronounced findings in the posterior, inferior aspect of the l eft upper lobe. Biapical scarring. This is more pronounced on the right. A 5 mm irregular nodule in the medial right lung apex (10/series 6). Irregular 1.4 x 1.1 cm right upper lobe nodule (37/series 6). Irregular 2.2 x 1.3 cm pulmonary nodule in the right middle lobe (54/series 6). A possible contiguous irregular 2.5 x 1.3 cm nodule along the anterior, inferior aspect of the right middle lobe. Seen on image 61 per series 6. No pleural effusions. No pneumothorax. No septal thickening or nodularity. Mediastinum: Heart size is normal. No pericardial effusion. No large vessel abnormality. s prominent mediastinal lymph nodes are present. There is a precarinal lymph node measuring 1.4 cm in short axis dimension (36/series 6). Chest wall and lower neck: Left tunneled port device is in place. Distal tip projects near the cavoat rial junction. Thyroid is unremarkable. No axillary or supraclavicular adenopathy by size. Bones: No aggressive osseous abnormality. No acute compression fractures. Upper Abdomen: Unremarkable. IMPRESSION: No acute pulmonary embolus. Severe upper lobe predominant pulmonary emphysematous changes. Multiple irregular right upper lobe and right middle lobe pulmonary nodule as detailed above suspicio us for malignancy. 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 No prior advanced imaging studies available for review at this time. There is associated mediastinal adenopathy. Recommend clinical correlation for history of malignancy. Follow-up imaging as indicated. Other chronic findings as above. Reviewed by: David Avalos MD on 05/31/2024 12:42 AM PDT Approved by: David Avalos MD on 05/31/2024 12:42 AM PDT Station ID: [id number]
[2024-05-31 02:18] VITALS: BP 144/84
== END 2024-05-31 02:05 | disposition home or self-care (01) ==
LOC: ED 19:22
DX: U07.1 COVID-19 (principal); I10 Essential (primary) hypertension; Z85.038 Personal history of other malignant neoplasm of large intestine; Z85.118 Personal history of other malignant neoplasm of bronchus and lung; Z79.899 Other long term (current) drug therapy
CPT/HCPCS: 36415; 71045; 71275; 80053; 83605; 83690; 84484; 85025; 87633; 93005; 96360; 99284; Q9967